=== PATIENT | male | born 1960 | race American Indian/Alaskan Native ===

== ENCOUNTER 2017-12-18 10:17 | Emergency (ER) | payer MEDICAID ==
[2017-12-18 10:31] VITALS: BP 124/85; PULSE 97; RESP 20; TEMP 98.8; O2SAT 98
--- NOTE | 2017-12-18 11:54 | C.PDOC ---
History Of Present Illness 57 year old male with a history of hypertension was sent to the ED by his medical office worker for evaluation of a chronic cyst (x1 year) on the left foot that burst today. Patient reports his cyst burst while he was running which promoted him to visit the medical office worker today, reports bleeding, and left ankle pain (x6 months). Denies fever, nausea, vomiting, headache, and any other associated symptoms. Time Seen by Provider: 12/18/17 10:38 Chief Complaint (Nursing): Lower Extremity Problem/Injury History Per: Patient History/Exam Limitations: no limitations Onset/Duration Of Symptoms: Days Current Symptoms Are (Timing): Still Present Past Medical History Reviewed: Historical Data, Nursing Documentation, Vital Signs Vital Signs: Last Vital Signs Temp 98.8 F 12/18/17 10:24 Pulse 97 H 12/18/17 10:24 Resp 20 12/18/17 10:24 BP 124/85 12/18/17 10:24 Pulse Ox 98 12/18/17 10:24 - Medical History PMH: HTN Family History: States: Unknown Family Hx - Social History Hx Alcohol Use: Yes Hx Substance Use: No Review Of Systems Except As Marked, All Systems Reviewed And Found Negative. Constitutional: Negative for: Fever Gastrointestinal: Negative for: Nausea, Vomiting Musculoskeletal: Positive for: Other (left ankle pain.) Skin: Positive for: Other (cyst on the left foot.) Neurological: Negative for: Headache Physical Exam - Physical Exam Appears: Non-toxic, No Acute Distress Skin: Warm, Dry, Other (medial aspect of the left foot: 4x4cm round cyst. soft and mobile. no discharge. no bleeding.) Head: Atraumatic, Normacephalic Eye(s): bilateral: Normal Inspection Extremity: Normal ROM (x4), No Calf Tenderness, Capillary Refill (less than 2 seconds), No Deformity, Other ( ) Neurological/Psych: Oriented x3, Normal Speech, Normal Motor, Normal Sensation, Normal Reflexes Gait: Steady ED Course And Treatment O2 Sat by Pulse Oximetry: 98 (RA) Pulse Ox Interpretation: Normal Medical Decision Making Medical Decision Making: Plan: --X-ray LF Foot. Progress/Update: X-ray viewed by me. Patient stable for discharge home. Prescribed Motrin. Disposition Counseled Patient/Family Regarding: Studies Performed, Diagnosis, Need For Followup - Disposition Referrals: at [facility] [Outside] Disposition: HOME/ ROUTINE Disposition Time: 11:52 Condition: STABLE Additional Instructions: Follow up in Podiatry clinic next Sunday. 12/25. Prescriptions: Ibuprofen [Motrin] 600 mg PO TID #15 tab Forms: [facility] (French), General Discharge Instructions - Clinical Impression Clinical Impression: Cyst - Scribe Statement The provider has reviewed the documentation as recorded by the Scribe (Lolis Toro) Provider Attestation: All medical record entries made by the Scribe were at my direction and personally dictated by me. I have reviewed the chart and agree that the record accurately reflects my personal performance of the history, physical exam, medical decision making, and the department course for this patient. I have also personally directed, reviewed, and agree with the discharge instructions and disposition.
--- NOTE | 2017-12-18 13:49 | RAD ---
Date of service: 12/18/2017 PROCEDURE: Left Foot Radiographs. HISTORY: ruptured cyst COMPARISON: None. FINDINGS: BONES: No fracture appreciated. The medial distal talus cortex is ill-defined (series 4, image 1). Hallux valgus orientation. Dorsal talar osseous productive change present. JOINTS: 1st metatarsal-phalangeal joint arthrosis SOFT TISSUES: A 2 by approximately 4 cm soft tissue protuberance projects medial to the navicular and talar bone bone OTHER FINDINGS: None. IMPRESSION: Abnormal soft tissue protuberance medial midfoot level. Consider correlation with MRI of the left foot /midfoot hindfoot junction. Distal talar medial cortex integrity indeterminate on single view. Other findings as above. Comments: Study marked for PA review .
--- NOTE | 2017-12-18 14:54 | CP.PCM.CON ---
History of Present Illness - History of Present Illness History of Present Illness: Podiatry Consult- Dr. Alvarenga 57 y/o male with PMHx of HTN seen in ED for left foot ruptured mass. He states he has had a slowly enlarging mass on the inside of the left foot for approx a year and a half. He admits to following up with a local station mechanic apprentice once (he does not recall the name) who took x-rays and advised the patient to monitor the area. He admits that up until now the mass has not caused him any pain, but it broke open three days ago and began to bleed, causing him pain. Admits to covering the area with a bandage. Denies F/C/N/V/CP/SOB. Denies tingling, numbness or burning in the left lower extremity. PSH: denies All: NKDA SocHx: social EtOH; denies cigarette or illicit drug use Review of Systems - Review of Systems All systems: reviewed and no additional remarkable complaints except (per HPI) Past Patient History - Past Social History Smoking Status: Never Smoked - CARDIAC Hx Hypertension: Yes - PSYCHIATRIC Hx Substance Use: No - SURGICAL HISTORY Hx Surgeries: No Meds Home Medications: Home Medication List Medication Instructions Recorded Confirmed Type Ibuprofen [Motrin] 600 mg PO TID #15 tab 12/18/17 Rx Allergies/Adverse Reactions: Allergies Allergy/AdvReac Type Severity Reaction Status Date / Time No Known Allergies Allergy Verified 12/18/17 10:28 Physical Exam - Constitutional Appears: Well, Non-toxic, No Acute Distress - Extremities Exam Additional comments: LLE focused exam: Vasc: DP/PT pulses palpable 2/4. Temperature gradient warm to cool. CFT < 3 sec to all digits. No pedal edema noted Derm: Open ruptured cystic mass noted to medial aspect of midfoot with mild sanguinous drainage noted. Borders of mass are well circumscribed. Mass is firm to palpation. No purulence, no malodor. Neuro: Protective sensation grossly intact Ortho: Mild-moderate tenderness to palpation of cystic mass - Neurological Exam Neurological exam: Alert, Oriented x3 - Psychiatric Exam Psychiatric exam: Normal Affect, Normal Mood Results - Vital Signs Recent Vital Signs: Last Vital Signs Temp 98.8 F 12/18/17 10:24 Pulse 97 H 12/18/17 10:24 Resp 20 12/18/17 10:24 BP 124/85 10/23/18 10:24 Pulse Ox 98 12/18/17 12:16 Assessment & Plan - Assessment and Plan (Free Text) Assessment: 57 y/o male with painful left foot soft tissue mass Plan Pt seen and evaluated in ED Discussed with attending Dr. Alvarenga X-rays of L foot reveal soft tissue mass with no osseous involvement, localized to medial midfoot Ruptured mass site cleaned with saline and dressed with betadine and DSD Rx dispensed for left lower extremity MRI to further evaluate soft tissue mass Pt to follow up in [facility] with Dr. Alvarenga on Mondays from 12-3pm Thank you for this consult
== END 2017-12-18 11:57 | disposition home or self-care (01) ==
LOC: C.ER 10:17
DX: L72.8 Other follicular cysts of the skin and subcutaneous tissue (principal)

== ENCOUNTER 2018-01-06 13:26 | Emergency (ER) | payer MEDICAID ==
[2018-01-06 13:54] VITALS: BP 113/77; PULSE 95; RESP 16; TEMP 98.8; O2SAT 98
--- NOTE | 2018-01-06 15:17 | C.PDOC ---
History Of Present Illness 57 years old male presents to ED for complaints of ruptured mass on his left foot associated with bleeding and subjective fever since yesterday. Patient states he had an MRI done on 01/03. Denies nausea, vomiting, difficulty ambulating, paresthesia or weakness in leg or foot. Time Seen by Provider: 01/06/18 14:20 Chief Complaint (Nursing): Lower Extremity Problem/Injury History Per: Patient History/Exam Limitations: no limitations Onset/Duration Of Symptoms: Hrs Recent travel outside of the [place]: No Past Medical History Reviewed: Historical Data, Nursing Documentation, Vital Signs Vital Signs: Last Vital Signs Temp 98.8 F 01/06/18 13:47 Pulse 95 H 01/06/18 13:47 Resp 16 01/06/18 13:47 BP 113/77 01/06/18 13:47 Pulse Ox 98 01/06/18 13:47 - Medical History PMH: HTN Surgical History: No Surg Hx Family History: States: Unknown Family Hx - Social History Hx Alcohol Use: Yes Hx Substance Use: No Review Of Systems Constitutional: Positive for: Fever. Negative for: Chills Gastrointestinal: Negative for: Nausea, Vomiting Musculoskeletal: Positive for: Other (Left foot ruptured mass with bleeding ) Skin: Negative for: Rash Neurological: Negative for: Weakness, Numbness Physical Exam - Physical Exam Appears: Non-toxic, No Acute Distress Skin: Warm, Dry, No Rash Head: Atraumatic, Normacephalic Eye(s): bilateral: Normal Inspection, PERRL, EOMI Oral Mucosa: Moist ([place] ) Neck: Normal ROM, Supple Chest: Symmetrical, No Tenderness Cardiovascular: Rhythm Regular, No Murmur Respiratory: Normal Breath Sounds, No Rales, No Rhonchi, No Wheezing Gastrointestinal/Abdominal: Soft, No Tenderness Extremity: Normal ROM (Full ROM of ankle and toe. Sensation intact. DP/Pt pulses 2+. ), Other (Large mass at medial aspect of left dorsal foot, is deroofed, oozing blood, and slight malodorous and eythematous. ) Extremity: Bilateral: Normal ROM Neurological/Psych: Oriented x3, Normal Speech Gait: Steady ED Course And Treatment O2 Sat by Pulse Oximetry: 98 (RA) Pulse Ox Interpretation: Normal Medical Decision Making Medical Decision Making: Plan: * Consultation with Podiatry resident customer relations consultant () for further evaluation. 16:35 * Podiatry resident came for patient evaluation. States doesn't appear infected, spoke to Dr. Rodriguez and wants residents to re-address the wound. * Pain medications will be prescribed and will order MRI for foot w/ contrast. Instructions given. Instructed to follow up with tomorrow. No antibiotics needed. Disposition Counseled Patient/Family Regarding: Studies Performed, Diagnosis, Need For Followup - Disposition Referrals: Lilia Alvarenga DPM [Staff Provider] - Disposition Time: 17:04 Prescriptions: traMADol [Ultram] 50 mg PO Q6 PRN #20 tab PRN Reason: Pain, Severe (8-10) Instructions: Wound Care (DC) Forms: General Discharge Instructions, [facility] (Faroese), Work Excuse - POA Present On Arrival: None - Clinical Impression Clinical Impression: Wound of foot - Scribe Statement The provider has reviewed the documentation as recorded by the Scribe Bishop Mercedes All medical record entries made by the Scribe were at my direction and personally dictated by me. I have reviewed the chart and agree that the record accurately reflects my personal performance of the history, physical exam, medical decision making, and the department course for this patient. I have also personally directed, reviewed, and agree with the discharge instructions and disposition.
--- NOTE | 2018-01-06 16:34 | CP.PCM.CON ---
History of Present Illness - History of Present Illness History of Present Illness: Podiatry Consult- Dr. Alvarenga 57 y/o male patient with PMH of HTN seen in ED for painful bleeding left foot soft tissue mass 4 days S/P L foot mass biopsy. He states he has had a slowly enlarging mass on the inside of the left foot for approximately a year and a half. He states that 3 weeks ago the mass ruptured casing him bleeding and pain. Patient states that he came to the ED where he was seen by the foot doctor who dressed the mass and referred him to the podiatry clinic. Patient state sthat he followed up with Dr. Alvarenga at the clinic where a biopsy was taken from the mass 4 days ago and patient sent to do MRI. He states that he doesn't know the results of both yet. Patient states that since he did the biopsy he has pain in his left foot and minimal but continues bleeding. Patient states that yesterday he felt feverish but he didn't have an actual temperature measurement. Patient denies C/N/V/CP/SOB. He Denies tingling, numbness or burning sensation in the left lower extremity. He denies any other pedal complaint at this time. PMH: HTN PSH: None All: NKDA Social Hx: deniessmoking or illicit drug use. Drink EtOH socially. Review of Systems - Review of Systems Review of Systems: As per HPI - Constitutional Constitutional: As Per HPI Past Patient History - Past Social History Smoking Status: Never Smoked - CARDIAC Hx Hypertension: Yes - PSYCHIATRIC Hx Substance Use: No - SURGICAL HISTORY Hx Surgeries: No Meds Allergies/Adverse Reactions: Allergies Allergy/AdvReac Type Severity Reaction Status Date / Time No Known Allergies Allergy Verified 01/06/18 13:47 Physical Exam - Constitutional Appears: Well, Non-toxic, No Acute Distress - Head Exam Head Exam: ATRAUMATIC, NORMOCEPHALIC - Extremities Exam Additional comments: LLE focused exam: Vasc: DP/PT pulses palpable 2/4. Temperature gradient warm to cool. Cap refill < 3 sec to all digits. mild pedal edema noted. Mild erythema noted around the mass. Neuro: Gross and Protective sensation are intact Derm: Open mass noted to medial aspect of midfoot with mild sanguinous drainage and blood clots noted. Mass is measuring [id number]. Borders of mass are well circumscribed. Mass is firm to palpation. No purulence, no malodor. MSK: Moderate tenderness to palpation of mass. Foot and ankle ROM are WNL. Muscle power intact 5/5 to all groups. - Neurological Exam Neurological exam: Alert, Oriented x3 - Psychiatric Exam Psychiatric exam: Normal Affect, Normal Mood Results - Vital Signs Recent Vital Signs: Last Vital Signs Temp 98.8 F 01/06/18 13:47 Pulse 95 H 01/06/18 13:47 Resp 16 01/06/18 13:47 BP 113/77 01/06/18 13:47 Pulse Ox 98 01/06/18 15:38 Assessment & Plan - Assessment and Plan (Free Text) Assessment: 57 y/o male patient seen and evaluated in the ED for painful bleeding left foot soft tissue mass 4 days S/P L foot mass biopsy Plan: Patient seen and evaluated in ED Discussed plan with attending Dr. Alvarenga X-rays of L foot reveal soft tissue mass with no osseous involvement, localized to medial midfoot L foot MRI without contrast done in 01/02/2018 shows abnormal soft tissue mass at the medial midfoot level. Consider Correlation with L foot MRI with contrast. Distal talar medial cortex integrity indeterminate on single view. Pathology report of the mass; fragments of skin with keratosis with separate fragment of fibrinous tissue with acute inflammatory cells and bacterial. Deeper neoplastic process can't bet evaluated in this tissue bipsy. Recommended repeat biopsy/excision for further evaluation if it's linically appropriate. Ruptured mass site cleaned with saline and dressed with betadine, DSD and chris bandage. Patient provided with script for pain meds by the ED doctor. Patient provided with script for MRI with contrast to the left foot. Patient educated RICE protocol. Patient expressed verbal understanding Pt to follow up in [facility] with Dr. Alvarenga Thank you for this consult - Date & Time Date: 01/06/18 Time: 17:12
== END 2018-01-06 17:32 | disposition home or self-care (01) ==
LOC: C.ER 13:26
DX: R22.42 Localized swelling, mass and lump, left lower limb (principal); Z98.890 Other specified postprocedural states

== ENCOUNTER 2018-01-12 16:07 | Emergency (ER) | payer MEDICAID ==
[2018-01-12 16:20] VITALS: RESP 18
--- NOTE | 2018-01-12 16:27 | C.PDOC ---
History Of Present Illness 57 y/o male patient with PMH of HTN comes in to ED for re-evaluation of painful bleeding left foot soft tissue mass since 01/02/18 after S/P L foot mass biopsy. Patient state sthat he followed up with Dr. Alvarenga, had MRI w/o contrast and now waiting for MRI w/contrast of left ankle to characterize a mass. Pt admits, was seen here on 01/06/18, when mass was packed with cotton, re-dressed, discharge home. Pt sts, since then, was unable to stop bleeding. Patient denies fever, chills, headache, dizziness, weakness, chest pain, SOB, dyspnea, plapitation, denies weakness, sensory or vascular deficits to Left leg/foot. Ambulate to Ed for evaluation. Time Seen by Provider: 01/12/18 16:23 Chief Complaint (Nursing): Lower Extremity Problem/Injury History Per: Patient Past Medical History Reviewed: Historical Data, Nursing Documentation, Vital Signs Vital Signs: Last Vital Signs Temp 98.5 F 01/12/18 16:18 Pulse 90 01/12/18 16:18 Resp 18 01/12/18 16:18 BP 148/90 01/12/18 16:18 Pulse Ox 98 01/12/18 16:18 - Medical History PMH: HTN Family History: States: Unknown Family Hx - Social History Hx Alcohol Use: Yes Hx Substance Use: No Review Of Systems Except As Marked, All Systems Reviewed And Found Negative. Constitutional: Negative for: Fever, Chills ENT: Negative for: Ear Discharge, Nose Discharge, Throat Pain Cardiovascular: Negative for: Chest Pain Respiratory: Negative for: Cough, Shortness of Breath Gastrointestinal: Negative for: Nausea, Vomiting, Abdominal Pain Genitourinary: Negative for: Dysuria, Incontinence Musculoskeletal: Positive for: Foot Pain. Negative for: Neck Pain, Back Pain Skin: Positive for: Lesions Neurological: Negative for: Weakness, Numbness, Headache, Dizziness Physical Exam - Physical Exam Appears: Well, Non-toxic, No Acute Distress Skin: Normal Color, Warm Head: Normacephalic Eye(s): bilateral: PERRL Oral Mucosa: Moist Neck: Trachea Midline, Supple Cardiovascular: Rhythm Regular, No Murmur, No JVD Respiratory: No Stridor, No Wheezing Gastrointestinal/Abdominal: Soft, No Tenderness, No Distention, No Guarding Extremity: Normal ROM (FAROM of left ankle and foot, no neurovascular deficits), Tenderness (medial malleolus left ankle), No Calf Tenderness (left), Capillary Refill (less than 2sec to left foot), No Deformity, No Swelling, Other (open wound 4cm diameter over medial malleolus left ankle with packed cotton in wound, mild bloody continous oozing noted from wound. No edema, no erythema.) Pulses: Left Dorsalis Pedis: Normal Neurological/Psych: Oriented x3, Normal Speech, Normal Motor, Normal Sensation, Normal Reflexes ED Course And Treatment - Laboratory Results Result Diagrams: 01/12/18 17:08 01/12/18 17:08 Lab Interpretation: No Acute Changes O2 Sat by Pulse Oximetry: 98 Pulse Ox Interpretation: Normal - CT Scan/US MRI of Left foot w/o contrast from 01/02/18 Other Rad Studies (CT/US): Radiology Report Reviewed CT/US Interpretation: Exam Date : 01/02/2018 09:42:39 ( Approved ). Study Comment : Sex / Age : M / 57Y. Creator : Lyndsay Kaplan. Dictator : Abhishek Erickson MD. Talent Agent : Roof Bolter : Abhishek Erickson MD. Approver2 : Report Date : 01/02/2018 10:30:28. My Comment : . Date of service: 01/02/2018. PROCEDURE: MRI Left midfoot. HISTORY: Left medial foot soft tissue mass the patient reports has been present for 2-3 years. No history trauma. COMPARISON: Left foot x-rays 12/18/2017. TECHNIQUE: Multiecho multiplanar sequences were performed through the left midfoot without the use of intravenous contrast. FINDINGS: BONES: No fracture identified. Degenerative changes noted along the dorsum of the foot. MUSCLES: Unremarkable. SOFT TISSUES: Within the medial subcutaneous fat at the level of the talonavicular joint, there is a heterogeneous, septated, predominantly T2 hyperintense, T1 hypointense mass m easuring 3.5 x 1.5 x 3.2 cm (AP by ML by CC). Immediately medial to the dominant component of the mass, there is an intermediate signal mass measuring 1.5 x 0.8 cm that may be a portion of the dominant mass. Mass protrudes from the skin. There is no underlying bony involvement. LISFRANC LIGAMENT: Intact. PLANTAR PLATE: Visualized plantar fascia is intact. EXTENSOR TENDONS: Intact. FLEXOR TENDONS: Intact. OTHER FINDINGS: None. IMPRESSION: Within the subcutaneous fat of the medial foot at the level of the talonavicular joint, there is a heterogeneous complex cystic mass measuring approximately 3.5 cm with an adjacent solid component measuring 1.5 cm. Recommend MRI with contrast for further evaluation. Additional findings as above. Progress Note: Pt was seen here by Podiatry resident and wound evaluated. case was discussed with and admisison recommend. Pt sts, " parked at wrong place, wish to be discharge now and will come back later. need to drive my home ". Risk of leaving against medical advised discussed with pateint, understand and agrees with risks. Pt will be discharged AMA Against Medical Advice - AMA Patient Left Against Medical Advice: The patient declines admission to the hospital and wishes to leave the Emergency Department. This action is against my medical advice. This decision was made with informed refusal. The patient was told that admission to the hospital is necessary. Explanation of the reasons why were discussed. The risks of leaving were explained to the patient and include, but are not limited to, worsening of known or currently unknown conditions, permanent disability and from undiagnosed or untreated conditions. The patient has the capacity to make this informed decision and understands my explanation of the current medical problem and risks of leaving. The patient voluntarily accepts these risks and signed an AMA form documenting our conversation. The patient was given the opportunity to ask questions and reconsider. The patient was encouraged to return to the Emergency Department at any time for further care. Disposition - Disposition Disposition: AGAINST MEDICAL ADVICE Disposition Time: 17:47 Condition: STABLE Forms: [employer] (Slovenian) - Clinical Impression Clinical Impression: Open wound, Bleeding from wound
[2018-01-12 17:13] LABS: EOS # 0.1 K/uL (0.0-0.7); LYMPH # 1.3 K/uL (1.0-4.3); MEAN CORPUSCULAR HGB CONC 34.9 g/dL (33.0-37.0); NEUT # 2.4 K/uL (1.8-7.0)
[2018-01-12 17:21] LABS: INR 1.1; PROTHROMBIN TIME 12.1 SECONDS (9.7-12.2)
[2018-01-12] MEDS ORDERED: Absorbable Gelatin Sponge Size 12-7 TOP STA (17:23)
[2018-01-12 17:27] LABS: BLOOD UREA NITROGEN 10 mg/dL (9-20); GFR NON-AFRICAN AMERICAN > 60
[2018-01-12 17:28] LABS: CALCIUM 8.8 mg/dl (8.6-10.4)
[2018-01-12] MEDS ORDERED: Absorbable Gelatin Sponge Size 12-7 ONE (17:34)
[2018-01-12] MEDS ORDERED: Lidocaine 2% MPF (5 ml) Inj ONE (17:35)
[2018-01-12 17:48] LABS: BASO % 1.1 % (0.0-2.0); EOS % 1.9 % (0.0-4.0); HEMOGLOBIN 13.1 g/dL (12.0-18.0); LYMPH % 30.8 % (20.0-40.0); MEAN CELL VOLUME 100.2 fL (80.0-94.0); MEAN PLATELET VOLUME 8.3 fL (7.2-11.7); MONO # 0.4 K/uL (0.0-0.8); NEUT % 56.2 % (50.0-75.0); NRBC % 0.3 % (0.0-2.0); RBC 3.76 Mil/uL (4.40-5.90); RED CELL DISTRIBUTION WIDTH 14.7 % (11.5-14.5); WHITE BLOOD COUNT 4.3 K/uL (4.8-10.8)
--- NOTE | 2018-01-12 18:01 | CP.PCM.CON ---
History of Present Illness - History of Present Illness History of Present Illness: Podiatry Consult for Dr. Alvarenga 57 y/o male with PMHx of HTN seen in ED for left foot ruptured mass. He states he has had a slowly enlarging mass on the inside of the left foot for approx a year and a half. Patient states he has been seen by Podiatry in the past for similar complaints. Patient states his fiance was dressing the wound, however, this time it ruptured as a bag fell on it. He admits to significant pain. Denies F/C/N/V/CP/SOB. Denies tingling, numbness or burning in the left lower extremity. PSH: denies All: NKDA SocHx: social EtOH; denies cigarette or illicit drug use Review of Systems - Review of Systems All systems: reviewed and no additional remarkable complaints except Review of Systems: As per HPI Past Patient History - Past Social History Smoking Status: Never Smoked - CARDIAC Hx Hypertension: Yes - PSYCHIATRIC Hx Substance Use: No - SURGICAL HISTORY Hx Surgeries: No - ANESTHESIA Hx Anesthesia: No Meds Allergies/Adverse Reactions: Allergies Allergy/AdvReac Type Severity Reaction Status Date / Time No Known Allergies Allergy Verified 01/06/18 13:47 Physical Exam - Constitutional Appears: Well, Non-toxic, No Acute Distress - Head Exam Head Exam: ATRAUMATIC, NORMOCEPHALIC - Extremities Exam Additional comments: LLE focused exam: Vasc: DP/PT pulses palpable 2/4. Temperature gradient warm to cool. CFT < 3 sec to all digits. No pedal edema noted Derm: Open ruptured cystic mass noted to medial aspect of midfoot with significant sanguinous drainage noted. Mass is measuring [id number]. Borders of mass are well circumscribed. Mass is firm to palpation. No purulence, positive malodor. macerated borders Neuro: Protective sensation grossly intact Ortho: moderate-severe tenderness to palpation of cystic mass - Neurological Exam Neurological exam: Alert, Oriented x3 - Psychiatric Exam Psychiatric exam: Normal Affect, Normal Mood Results - Vital Signs Recent Vital Signs: Last Vital Signs Temp 98.5 F 01/12/18 16:18 Pulse 90 01/12/18 16:18 Resp 18 01/12/18 16:18 BP 148/90 01/12/18 16:18 Pulse Ox 98 01/12/18 17:00 - Labs Result Diagrams: 01/12/18 17:08 01/12/18 17:08 Labs: Laboratory Results - last 24 hr 01/12/1818 01/12/18 17:08 17:08 17:08 WBC 4.3 L RBC 3.76 L Hgb 13.1 Hct 37.6 MCV 100.2 H MCH 35.0 H MCHC 34.9 RDW 14.7 H Plt Count 146 MPV 8.3 Neut % (Auto) 56.2 Lymph % (Auto) 30.8 [place] % (Auto) 10.0 Eos % (Auto) 1.9 Baso % (Auto) 1.1 Neut # (Auto) 2.4 Lymph # (Auto) 1.3 [place] # (Auto) 0.4 Eos # (Auto) 0.1 Baso # (Auto) 0.0 PT 12.1 INR 1.1 APTT 32 Sodium 142 Potassium 4.0 Chloride 104 Carbon Dioxide 26 Anion Gap 15 BUN 10 Creatinine 1.0 Est GFR ( Amer) > 60 Est GFR (Non-Af Amer) > 60 Random Glucose 93 Calcium 8.8 Assessment & Plan - Assessment and Plan (Free Text) Assessment: 57 y/o male with painful left foot soft tissue mass Plan: Patient was seen and evaluated in the Emergency Department Plan was discussed with Dr. Alvarenga Previous Imaging reviewed -X-rays of L foot reveal soft tissue mass with no osseous involvement, localized to medial midfoot - L foot MRI without contrast done in 01/02/2018 shows abnormal soft tissue mass at the medial midfoot level. Consider Correlation with L foot MRI with contrast. Distal talar medial cortex integrity indeterminate on single view. -Pathology report of the mass: fragments of skin with keratosis with separate fragment of fibrinous tissue with acute inflammatory cells and bacterial. Deeper neoplastic process can't bet evaluated in this tissue bipsy. Recommended repeat biopsy/excision for further evaluation if it's linically appropriate Patient given a local ring block with 5 cc of 2% Lidocaine Ruptured mass site cleaned with saline, Gelfoam applied to the site to control bleeding Site dressed with 1 inch iodoform packing, gauze, ABD and Kerlix As per Podiatry recommendation, patient advised to be admitted Patient however would like to sign AMA at this time and states he will return for admission, Patient expressed verbal understanding on all risks Please do not remove dressing upon return to the ED Thank you - Date & Time Date: 01/12/18 Time: 18:54
[2018-01-12] MEDS ORDERED: Lidocaine 2% Inj (20ml) INFIL ONE (18:04)
[2018-01-12 18:10] VITALS: BP 165/115; PULSE 84; TEMP 98.9
[2018-01-12 18:16] VITALS: O2SAT 98
== END 2018-01-12 18:10 | disposition left against medical advice (07) ==
LOC: C.ER 16:07
DX: R22.42 Localized swelling, mass and lump, left lower limb (principal)

== ENCOUNTER 2018-01-13 10:28 | Inpatient (IN) | payer MEDICAID ==
--- NOTE | 2018-01-13 11:12 | C.PDOC ---
History Of Present Illness 57 year old male , PNHx of HTN, non-healing open wound to his left ankle with bleeding, present to ED for re-evaluation and admission after was seen here in ED yesterday and was offered admission. Patient denies any new changes since yesterday. FYI: Records from yesterday review, pt was seen in ED due to same complaints, blood work review- no acute changes. Pt was evaluated by client support administrator/resident , case discussed with and admission offered, pt sign AMA. Time Seen by Provider: 01/13/18 10:31 Chief Complaint (Nursing): Wound Check History Per: Patient History/Exam Limitations: no limitations Current Symptoms Are (Timing): Still Present Location Of Injury: Left: Ankle Quality Of Symptoms: Other (open wound) Past Medical History Reviewed: Historical Data, Nursing Documentation, Vital Signs Vital Signs: Last Vital Signs Temp 98.9 F 01/13/18 10:35 Pulse 76 01/13/18 10:35 Resp 18 01/13/18 10:35 BP 166/94 H 01/13/18 10:35 Pulse Ox 100 01/13/18 10:35 - Medical History PMH: HTN Surgical History: No Surg Hx Family History: States: Unknown Family Hx - Social History Hx Alcohol Use: Yes Hx Substance Use: No Review Of Systems Except As Marked, All Systems Reviewed And Found Negative. Constitutional: Negative for: Fever, Chills Skin: Positive for: Other (open wound at left ankle) Physical Exam - Physical Exam Additional Physical Exam Comments: Appears: Well, Non-toxic, No Acute Distress Skin: Normal Color, Warm Head: Normacephalic Eye(s): bilateral: PERRL Oral Mucosa: Moist Neck: Trachea Midline, Supple Cardiovascular: Rhythm Regular, No Murmur, No JVD Respiratory: No Stridor, No Wheezing Gastrointestinal/Abdominal: Soft, No Tenderness, No Distention, No Guarding Extremity: Normal ROM (FAROM of left ankle and foot, no neurovascular deficits), Tenderness (medial malleolus left ankle), No Calf Tenderness (left), Capillary Refill (less than 2sec to left foot), No Deformity, No Swelling, Other (open wound 4cm diameter over medial malleolus left ankle with packed cotton in wound, mild bloody continous oozing noted from wound. No edema, no erythema.) Pulses: Left Dorsalis Pedis: Normal Neurological/Psych: Oriented x3, Normal Speech, Normal Motor, Normal Sensation, Normal Reflexes ED Course And Treatment O2 Sat by Pulse Oximetry: 100 (RA) Pulse Ox Interpretation: Normal Progress Note: Pt rmained stable during the Ed evaluation. case discussed with Podiatry resident again, admisison confirmed to med with podiatry consul. case discussed with and admission arranged. Disposition - Disposition Disposition: HOME/ ROUTINE Disposition Time: 11:02 Condition: STABLE - Clinical Impression Clinical Impression: Bleeding from wound, Non-healing non-surgical wound - PA / MATERIALS MANAGEMENT MANAGER / Resident Statement MD/DO has reviewed & agrees with the documentation as recorded. - Scribe Statement The provider has reviewed the documentation as recorded by the Scribe (Jonn June) All medical record entries made by the Scribe were at my direction and personally dictated by me. I have reviewed the chart and agree that the record accurately reflects my personal performance of the history, physical exam, medical decision making, and the department course for this patient. I have also personally directed, reviewed, and agree with the discharge instructions and disposition.
--- NOTE | 2018-01-13 12:36 | CP.PCM.HP ---
Past Patient History - Past Social History Smoking Status: Never Smoked - CARDIAC Hx Hypertension: Yes - PSYCHIATRIC Hx Substance Use: No - SURGICAL HISTORY Hx Surgeries: No - ANESTHESIA Hx Anesthesia: No Meds Allergies/Adverse Reactions: Allergies Allergy/AdvReac Type Severity Reaction Status Date / Time No Known Allergies Allergy Verified 01/13/18 10:35 Physical Exam - Constitutional Appears: Well - Head Exam Head Exam: ATRAUMATIC, NORMAL INSPECTION, NORMOCEPHALIC - Eye Exam Eye Exam: EOMI, Normal appearance, PERRL Pupil Exam: NORMAL ACCOMODATION, PERRL - ENT Exam ENT Exam: Mucous Membranes Moist, Normal Exam - Neck Exam Neck exam: Positive for: Normal Inspection - Respiratory Exam Respiratory Exam: Decreased Breath Sounds - Cardiovascular Exam Cardiovascular Exam: REGULAR RHYTHM, +S1, +S2 - GI/Abdominal Exam GI & Abdominal Exam: Diminished Bowel Sounds, Soft - Rectal Exam Rectal Exam: Deferred Results - Vital Signs Recent Vital Signs: Last Vital Signs Temp 98.5 F 01/13/18 12:30 Pulse 75 01/13/18 12:30 Resp 16 01/13/18 12:30 BP 176/96 H 01/13/18 12:30 Pulse Ox 100 01/13/18 12:30
--- NOTE | 2018-01-13 17:35 | CP.PCM.CON ---
History of Present Illness - History of Present Illness History of Present Illness: discussed on rounds 57M seen at bedside for dorsal left foot soft tissue mass. He received a punch biopsy of his soft tissue mass in clinic several weeks ago that came back inconclusive. He also received an MRI without contrast on 01/02 that was positive for cystic mass with recommendation for MRI with contrast. MRI with contrast was taken today and results are pending. Review of Systems - Review of Systems All systems: reviewed and no additional remarkable complaints except - Constitutional Constitutional: absent: As Per HPI, Anorexia, Chills, Daytime Sleepiness, Excessive Sweating, Fatigue, Fever, Frequent Falls, Headache, Increased Appetite, Lethargy, Malaise, Night Sweats, Snoring, Sleep Apnea, Weight Gain, Weight Loss, Weakness, Other Past Patient History - Past Medical History & Family History Past Medical History?: Yes - Past Social History Smoking Status: Unknown If Ever Smoked - CARDIAC Hx Hypertension: Yes - MUSCULOSKELETAL/RHEUMATOLOGICAL Hx Falls: No - PSYCHIATRIC Hx Substance Use: No - SURGICAL HISTORY Hx Surgeries: No - ANESTHESIA Hx Anesthesia: Yes Meds Allergies/Adverse Reactions: Allergies Allergy/AdvReac Type Severity Reaction Status Date / Time No Known Allergies Allergy Verified 01/13/18 10:35 - Medications Medications: Current Medications Amlodipine Besylate (Norvasc) 5 mg PO DAILY [facility] Clonidine HCl (Catapres) 0.1 mg PO Q8 [facility] Last Admin: 01/13/18 16:17 Dose: 0.1 mg Piperacillin Sod/Tazobactam (Sod 3.375 gm/ Sodium Chloride) 100 mls @ 200 mls/hr IVPB Q8H [facility]; Protocol Influenza Virus Vaccine (Fluzone Quad [id number]) 60 mcg IM .ONCE ONE Stop: 01/15/18 10:01 Pantoprazole Sodium (Protonix Ec Tab) 40 mg PO DAILY [facility] Pneumococcal Polyvalent Vaccine (Pneumovax 23 Vaccine) 0.5 ml IM .ONCE ONE Stop: 01/15/18 10:01 Tramadol HCl (Ultram) 50 mg PO Q6 PRN PRN Reason: Pain, moderate (4-7) Physical Exam - Constitutional Appears: Chronically Ill - Head Exam Head Exam: ATRAUMATIC - Eye Exam Eye Exam: absent: Scleral icterus - ENT Exam ENT Exam: Mucous Membranes Dry, Normal Oropharynx - Neck Exam Neck exam: Negative for: Lymphadenopathy - Respiratory Exam Respiratory Exam: Decreased Breath Sounds - Cardiovascular Exam Cardiovascular Exam: REGULAR RHYTHM - GI/Abdominal Exam GI & Abdominal Exam: Diminished Bowel Sounds - Rectal Exam Rectal Exam: Deferred - Exam Exam: NORMAL INSPECTION - Extremities Exam Extremities exam: Positive for: pedal edema, tenderness, pedal pulses present. Negative for: calf tenderness, normal inspection - Back Exam Back exam: absent: CVA tenderness (L), CVA tenderness (R) - Neurological Exam Neurological exam: Alert, CN II-XII Intact, Oriented x3, Reflexes Normal - Psychiatric Exam Psychiatric exam: Normal Mood - Skin Skin Exam: Dry Results - Vital Signs Recent Vital Signs: Last Vital Signs Temp 98.1 F 01/13/18 16:28 Pulse 65 01/13/18 16:28 Resp 20 01/13/18 16:28 BP 169/98 H 01/13/18 17:13 Pulse Ox 100 01/13/18 17:32 - Labs Result Diagrams: 01/14/18 06:43 01/14/18 06:43 Assessment & Plan (1) Bleeding from wound Status: Acute (2) Non-healing non-surgical wound Status: Acute (3) Cyst Status: Acute (4) Open wound Status: Acute - Assessment and Plan (Free Text) Assessment: await cultures cont IV rx and wound care
[2018-01-13] MEDS: Piperacillin/Tazobact 3.375 GM in Sodium Chloride 100 ML IVPB SCH (17:39)
[2018-01-13] MEDS: Pantoprazole 40 mg EC Tab PO SCH (17:57)
[2018-01-14] MEDS: Piperacillin/Tazobact 3.375 GM in Sodium Chloride 100 ML IVPB SCH ×3 (02:13→17:34)
[2018-01-14 07:05] LABS: BASO % 1.2 % (0.0-2.0); HEMOGLOBIN 12.9 g/dL (12.0-18.0); LYMPH # 0.8 K/uL (1.0-4.3); MEAN CELL VOLUME 100.6 fL (80.0-94.0); MEAN CORPUSCULAR HEMOGLOBIN 35.5 pg (27.0-31.0); MEAN CORPUSCULAR HGB CONC 35.3 g/dL (33.0-37.0); MEAN PLATELET VOLUME 8.8 fL (7.2-11.7); MONO # 0.4 K/uL (0.0-0.8); MONO % 12.8 % (0.0-10.0); NEUT # 1.9 K/uL (1.8-7.0); NRBC % 0.2 % (0.0-2.0); RBC 3.64 Mil/uL (4.40-5.90); RED CELL DISTRIBUTION WIDTH 14.1 % (11.5-14.5); WHITE BLOOD COUNT 3.1 K/uL (4.8-10.8)
[2018-01-14 07:14] LABS: INR 1.2; PROTHROMBIN TIME 12.7 SECONDS (9.7-12.2)
[2018-01-14 08:08] VITALS: RESP 20
[2018-01-14 08:11] LABS: ALB/GLOB RATIO 1.1 (1.0-2.1); ALBUMIN 4.1 g/dL (3.5-5.0); ALT/SGPT 126 U/L (21-72); AST/SGOT 251 U/L (17-59); BLOOD UREA NITROGEN 16 mg/dL (9-20); CALCIUM 8.8 mg/dl (8.6-10.4); GFR NON-AFRICAN AMERICAN > 60
[2018-01-14] MEDS: Pantoprazole 40 mg EC Tab PO SCH (09:47)
--- NOTE | 2018-01-14 10:52 | CP.PCM.CON ---
History of Present Illness - History of Present Illness History of Present Illness: Podiatry Consult Note for Dr. Alvarenga 57M seen at bedside for dorsal left foot soft tissue mass. Patient was previously seen multiple times by our service in ED and in Dr. Alvarenga's clinic. He received a punch biopsy of his soft tissue mass in clinic several weeks ago that came back inconclusive. He also received an MRI without contrast on 01/02 that was positive for cystic mass with recommendation for MRI with contrast. MRI with contrast was taken today and results are pending. Patient states that there is only minimal pain to the growth at this time. He does state that he has noticed that it has continued to bleed. He denies any new trauma to the area. Patient is AAO x 3 and NAD at time of visit. Denies any further pedal complaints at this time. Denies any recent N/V/F/C/CP/SOB/D Review of Systems - Review of Systems All systems: reviewed and no additional remarkable complaints except Review of Systems: as per HPI Past Patient History - Past Medical History & Family History Past Medical History?: Yes - Past Social History Smoking Status: Unknown If Ever Smoked - CARDIAC Hx Hypertension: Yes - MUSCULOSKELETAL/RHEUMATOLOGICAL Hx Falls: No - PSYCHIATRIC Hx Substance Use: No - SURGICAL HISTORY Hx Surgeries: No - ANESTHESIA Hx Anesthesia: Yes Meds Allergies/Adverse Reactions: Allergies Allergy/AdvReac Type Severity Reaction Status Date / Time No Known Allergies Allergy Verified 01/13/18 10:35 - Medications Medications: Current Medications Amlodipine Besylate (Norvasc) 5 mg PO DAILY [facility] Last Admin: 01/14/18 09:47 Dose: 5 mg Clonidine HCl (Catapres) 0.1 mg PO Q8 [facility] Last Admin: 01/14/18 06:16 Dose: 0.1 mg Folic Acid (Folic Acid) 1 mg PO DAILY [facility] Last Admin: 01/14/18 09:47 Dose: 1 mg Heparin Sodium (Porcine) (Heparin) 5,000 units SC Q12 [facility] Last Admin: 01/14/18 09:47 Dose: 5,000 units Piperacillin Sod/Tazobactam (Sod 3.375 gm/ Sodium Chloride) 100 mls @ 200 mls/hr IVPB Q8H [facility]; Protocol Last Admin: 01/14/18 10:46 Dose: 200 mls/hr Influenza Virus Vaccine (Fluzone Quad [id number]) 60 mcg IM .ONCE ONE Stop: 01/15/18 10:01 Pantoprazole Sodium (Protonix Ec Tab) 40 mg PO DAILY [facility] Last Admin: 01/14/18 09:47 Dose: 40 mg Pneumococcal Polyvalent Vaccine (Pneumovax 23 Vaccine) 0.5 ml IM .ONCE ONE Stop: 01/15/18 10:01 Thiamine HCl (Vitamin B1 Tab) 100 mg PO BID [facility] Last Admin: 01/14/18 09:47 Dose: 100 mg Tramadol HCl (Ultram) 50 mg PO Q6 PRN PRN Reason: Pain, moderate (4-7) Physical Exam - Constitutional Appears: Well, Non-toxic, No Acute Distress - Extremities Exam Additional comments: LLE focused exam: Vasc: DP/PT pulses palpable 2/4. Temperature gradient warm to warm from proximal to distal WNL. CFT < 3 sec to all digits. No pedal edema noted Derm: Open ruptured cystic mass noted to the dorsal aspect of midfoot with significant serosanguinous drainage noted. Mass is measuring [id number]. Borders of mass are well circumscribed. Mass is firm to palpation. No purulence, positive malodor and macerated borders Neuro: Epicritic and protective sensation grossly intact Ortho: moderate-severe tenderness to palpation of cystic mass - Neurological Exam Neurological exam: Alert, Oriented x3 - Psychiatric Exam Psychiatric exam: Normal Affect, Normal Mood Results - Vital Signs Recent Vital Signs: Last Vital Signs Temp 98.7 F 01/14/18 08:06 Pulse 74 01/14/18 08:06 Resp 20 01/14/18 08:06 BP 152/85 H 01/14/18 08:06 Pulse Ox 97 01/14/18 08:06 - Labs Result Diagrams: 01/14/18 06:43 01/14/18 06:43 Labs: Laboratory Results - last 24 hr 01/14/18 01/14/18 01/14/18 06:43 06:43 06:43 WBC 3.1 L RBC 3.64 L Hgb 12.9 Hct 36.6 MCV 100.6 H MCH 35.5 H MCHC 35.3 RDW 14.1 Plt Count 131 MPV 8.8 Neut % (Auto) 60.0 Lymph % (Auto) 25.0 [place] % (Auto) 12.8 H Eos % (Auto) 1.0 Baso % (Auto) 1.2 Neut # (Auto) 1.9 Lymph # (Auto) 0.8 L [place] # (Auto) 0.4 Eos # (Auto) 0.0 Baso # (Auto) 0.0 PT 12.7 H INR 1.2 APTT 30 Sodium 138 Potassium 3.8 Chloride 97 L Carbon Dioxide 28 Anion Gap 16 BUN 16 Creatinine 1.1 Est GFR ( Amer) > 60 Est GFR (Non-Af Amer) > 60 Random Glucose 94 Calcium 8.8 Total Bilirubin 3.0 H AST 251 H ALT 126 H Alkaline Phosphatase 81 Total Protein 7.9 Albumin 4.1 Globulin 3.8 Albumin/Globulin Ratio 1.1 Assessment & Plan - Assessment and Plan (Free Text) Assessment: 57M seen at bedside for dorsal left foot soft tissue mass Plan: Patient seen and evaluated Plan discussed with Dr. Lyle Mcdermott, absent leukocytosis Continue IV abx per ID 12/18 foot xray: Abnormal soft tissue protuberance medial midfoot level 12/24 soft tissue mass pathology report: Fragments of skin with keratosis, separate fragment of fibrous tissue with acute inflammatory cells and bacteria. Note: Given the radiologic appearance and size of the mass, a deeper neoplastic process can not be evaluated in this tissue biopsy. A repeat biopsy/excision is recommended for further evaluation if clinically appropriate 01/02 MRI without contrast: Within the subcutaneous fat of the medial foot at the level of the talonavicular joint, there is a heterogeneous complex cystic mass measuring approximately 3.5 cm with an adjacent solid component measuring 1.5 cm 01/14 MRI with contrast: Read pending Wound dressed with ABD, DSD No plan for surgical intervention at this time, will await results of MRI with contrast Podiatry will continue to follow while patient in house - Date & Time Date: 01/14/18 Time: 11:02
[2018-01-14 11:50] LABS: HDL CHOLESTEROL 92 mg/dL (30-70)
[2018-01-14 12:02] LABS: LDL CHOLESTEROL 72 mg/dL (0-129)
[2018-01-14 12:20] LABS: HEPATITIS B SURFACE AG Negative (NEGATIVE)
[2018-01-14 12:25] LABS: HEPATITIS A IGM NEGATIVE (NEGATIVE); HEPATITIS B CORE AB NEGATIVE (NEGATIVE)
[2018-01-14 12:37] LABS: HEPATITIS C ANTIBODY NEGATIVE (NEGATIVE)
--- NOTE | 2018-01-14 13:37 | CP.PCM.PN ---
Subjective - Date & Time of Evaluation Date of Evaluation: 01/14/18 Time of Evaluation: 13:35 - Subjective Subjective: PGY-2 Progress Note Patient seen and examined at bedside. Per nursing no acute events occurred overnight. Patient denies any chest pain, fevers, chills, nausea, vomiting, headaches, dizziness, abdominal pain, palpitations, syncopal episodes, or any other complaints. 57 year old male with a past medical history of hypertension presents to the hospital with left ankle bleeding wound . Patient reports some pain he describes as throbbing in nature as well. Patient recently presented to the [facility] with the same complaint and was offered admission however, patient refused at the time. Patient denies any fevers, chills, nausea, vomiting, headaches, dizzines, abdominal pain, or any other complaints. Medical history: htn Surgical history: Denies Allergies: Denies Social history: Social drinker. Denies illicit drug use. Objective - Vital Signs/Intake and Output Vital Signs (last 24 hours): Temp Pulse Resp BP Pulse Ox 98.7 F 74 20 152/85 H 97 01/14/18 08:06 01/14/18 08:06 01/14/18 08:06 01/14/18 08:06 01/14/18 08:06 - Medications Medications: Current Medications Amlodipine Besylate (Norvasc) 5 mg PO DAILY [facility] Last Admin: 01/14/18 09:47 Dose: 5 mg Clonidine HCl (Catapres) 0.1 mg PO Q8 [facility] Last Admin: 01/14/18 06:16 Dose: 0.1 mg Folic Acid (Folic Acid) 1 mg PO DAILY [facility] Last Admin: 01/14/18 09:47 Dose: 1 mg Heparin Sodium (Porcine) (Heparin) 5,000 units SC Q12 [facility] Last Admin: 01/14/18 09:47 Dose: 5,000 units Piperacillin Sod/Tazobactam (Sod 3.375 gm/ Sodium Chloride) 100 mls @ 200 mls/hr IVPB Q8H [facility]; Protocol Last Admin: 01/14/18 10:46 Dose: 200 mls/hr Influenza Virus Vaccine (Fluzone Quad [id number]) 60 mcg IM .ONCE ONE Stop: 01/15/18 10:01 Pantoprazole Sodium (Protonix Ec Tab) 40 mg PO DAILY [facility] Last Admin: 01/14/18 09:47 Dose: 40 mg Pneumococcal Polyvalent Vaccine (Pneumovax 23 Vaccine) 0.5 ml IM .ONCE ONE Stop: 01/15/18 10:01 Thiamine HCl (Vitamin B1 Tab) 100 mg PO BID [facility] Last Admin: 01/14/18 09:47 Dose: 100 mg Tramadol HCl (Ultram) 50 mg PO Q6 PRN PRN Reason: Pain, moderate (4-7) - Labs Labs: 01/14/18 06:43 01/14/18 06:43 PT 12.7 SECONDS (9.7-12.2) H 01/14/18 06:43 INR 1.2 01/14/18 06:43 APTT 30 SECONDS (21-34) 01/14/18 06:43 - Head Exam Head Exam: ATRAUMATIC, NORMAL INSPECTION, NORMOCEPHALIC - Eye Exam Eye Exam: EOMI, Normal appearance, PERRL. absent: Scleral icterus Pupil Exam: NORMAL ACCOMODATION, PERRL. absent: Unequal - ENT Exam ENT Exam: Mucous Membranes Moist, Normal Exam - Neck Exam Neck Exam: Normal Inspection - Respiratory Exam Respiratory Exam: Clear to Ausculation Bilateral, NORMAL BREATHING PATTERN. absent: Decreased Breath Sounds, Rales, Wheezes, Respiratory Distress - Cardiovascular Exam Cardiovascular Exam: REGULAR RHYTHM, +S1, +S2 - GI/Abdominal Exam GI & Abdominal Exam: Soft, Normal Bowel Sounds. absent: Tenderness, Diminished Bowel Sounds - Neurological Exam Neurological Exam: Alert, Awake, CN II-XII Intact, Oriented x3. absent: Reflexes Normal - Psychiatric Exam Psychiatric exam: Normal Affect, Normal Mood. absent: Anxious, Suicidal Ideation - Skin Skin Exam: Dry, Intact, Warm Assessment and Plan - Assessment and Plan (Free Text) Assessment: 57 year old male with a past medical history of hypertension admitted for left ankle bleeding wound. Plan: 1. Left ankle wound -Left foot MRI taken. Pending final read -Foot xray: Abnormal soft tissue protuberance medial midfoot level -Soft tissue mass pathology report: Fragments of skin with keratosis, separate fragment of fibrous tissue with acute inflammatory cells and bacteria. Note: Given the radiologic appearance and size of the mass, a deeper neoplastic process can not be evaluated in this tissue biopsy. A repeat biopsy/excision is recommended for further evaluation if clinically appropriate - MRI without contrast: Within the subcutaneous fat of the medial foot at the level of the talonavicular joint, there is a heterogeneous complex cystic mass measuring approximately 3.5 cm with an adjacent solid component measuring 1.5 cm -Podiatry Dr. Alvarenga consulted. Help appreciated :No plan for surgical intervention at this time, will await results of MRI with contrast Podiatry will continue to follow while patient in house -Infectious disease Dr. Shaw consulted. Help appreciated. Medications: :Zosyn 3.375gm IVPB Q8H :Tramadol 50mg PO Q6 PRN 2.Hypertension -Norvasc 5mg PO Daily -Clonidine .1mg PO Q8 3. Transaminitis -Abdominal u/s ordered. Will f/u with results -Avoid hepatotoxic agents ppx -Heparin 5000 units SC Q12 -Protonix 40 mg PO Daily -Folic Aci 1mg PO Daily -Thiamine 100 mg PO BID All managment per Dr. Jason Erickson. Aubrey Barajas, PGY-2
--- NOTE | 2018-01-14 14:31 | MRI ---
MRI left foot HISTORY: Soft tissue mass. COMPARISON: MRI dated 01/02/2018 TECHNIQUE: Multi-echo multiplanar sequences were performed through the left foot without and with the use of intravenous contrast. FINDINGS: Again identified within the medial subcutaneous fat at the level of the talonavicular joint, there is a complex heterogeneous, septated predominantly T2 hyperintense and T1 hypointense clustered mass. The mass measures approximately 3.9 x 1.7 x 3.3 centimeters. The mass contains multiple areas of internal segmentation as well as peripheral thickening. There is some mild postcontrast enhancement on the post-contrast sequences. This is of uncertain clinical etiology and underlying neoplasm such as synovial sarcoma cannot be excluded. Additional etiologies are not excluded and correlation with soft tissue and or excisional biopsy is recommended if clinically indicated. This mass appears to approximate the medial cortex of the navicular bone. No gross signal abnormality noted within the medial aspect of the navicular bone on the T1 and STIR sequences; however, there is some minimal increased signal on the post-contrast sequences as demonstrated on series 13 image 14, nonspecific. Incidentally noted is a small rounded cystic foci seen measuring 6 x 6 x 6 millimeters within the posterior soft tissues at the level of the talus as demonstrated on series 7, image 20 and series 10, image 31. This demonstrates primarily decreased T1 signal and increased STIR signal with a small internal focus of low STIR signal within the lesion. This is of uncertain clinical etiology and may represent a small synovial cyst and or ganglia versus traversing vessel versus additional etiology. Continued interval follow-up may be helpful if clinically indicated. Anterior extensor tendons are preserved. Medial flexor tendons are preserved. Peroneal tendons are preserved. Anterior and posterior tibiofibular and talofibular ligaments are preserved. Plantar fascia is preserved. Sinus tarsi is preserved. No significant ankle joint effusion Deltoid ligament is preserved. Impression: Again identified within the medial subcutaneous fat at the level of the talonavicular joint, there is a complex heterogeneous, septated predominantly T2 hyperintense and T1 hypointense clustered mass. The mass measures approximately 3.9 x 1.7 x 3.3 centimeters. The mass contains multiple areas of internal segmentation as well as peripheral thickening. There is some mild postcontrast enhancement on the post-contrast sequences. This is of uncertain clinical etiology and underlying neoplasm such as synovial sarcoma cannot be excluded. Additional etiologies are not excluded and correlation with soft tissue and or excisional biopsy is recommended if clinically indicated. This mass appears to approximate the medial cortex of the navicular bone. No gross signal abnormality noted within the medial aspect of the navicular bone on the T1 and STIR sequences; however, there is some minimal increased signal on the post-contrast sequences as demonstrated on series 13 image 14, nonspecific. Incidentally noted is a small rounded cystic foci seen measuring 6 x 6 x 6 millimeters within the posterior soft tissues at the level of the talus as demonstrated on series 7, image 20 and series 10, image 31. This demonstrates primarily decreased T1 signal and increased STIR signal with a small internal focus of low STIR signal within the lesion. This is of uncertain clinical etiology and may represent a small synovial cyst and or ganglia versus traversing vessel versus additional etiology. Continued interval follow-up may be helpful if clinically indicated. These findings were discussed with Dr. Alvarenga at 1:30 p.m. on 01/14/2018.
--- NOTE | 2018-01-14 14:43 | US ---
Abdominal ultrasound HISTORY: Elevated liver enzymes. COMPARISON: None available. TECHNIQUE: Real-time sonography was performed through the abdomen. FINDINGS: LIVER: 16.1 centimeters in length. Increased echogenicity of the hepatic parenchymal cortex suggestive for fatty infiltration versus hepatic parenchymal disease. Clinical correlation. GALLBLADDER: No calculi or sludge. Normal wall thickness of 1.9 millimeters. Negative sonographic Polanco's sign. Common bile duct measures 1.9 millimeters, within normal limits. Limited visualization of the pancreas. Spleen measures 9.9 centimeters in length, within normal limits. Limited visualization of the aorta. IVC grossly preserved. RIGHT KIDNEY: 11.3 x 3.7 x 4.4 centimeters. No calculi or hydronephrosis. LEFT KIDNEY: 11.2 x 6.3 x 5.7 centimeters. No calculi or hydronephrosis. IMPRESSION: 1. Increased echogenicity of the hepatic parenchymal cortex suggestive for fatty infiltration versus hepatic parenchymal disease. Clinical correlation. 2. Limited visualization of the pancreas
--- NOTE | 2018-01-14 18:29 | CP.PCM.PN ---
Subjective - Date & Time of Evaluation Date of Evaluation: 01/14/18 Time of Evaluation: 08:30 - Subjective Subjective: clinically same Objective - Vital Signs/Intake and Output Vital Signs (last 24 hours): Temp Pulse Resp BP Pulse Ox 99.1 F 69 20 128/75 98 01/14/18 15:00 01/14/18 15:00 01/14/18 15:00 01/14/18 15:00 01/14/18 15:00 Intake and Output: 01/14/18 01/14/18 06:59 18:59 Intake Total 500 Balance 500 - Medications Medications: Current Medications Amlodipine Besylate (Norvasc) 5 mg PO DAILY [facility] Last Admin: 01/14/18 09:47 Dose: 5 mg Clonidine HCl (Catapres) 0.1 mg PO Q8 [facility] Last Admin: 01/14/18 14:13 Dose: 0.1 mg Folic Acid (Folic Acid) 1 mg PO DAILY [facility] Last Admin: 01/14/18 09:47 Dose: 1 mg Heparin Sodium (Porcine) (Heparin) 5,000 units SC Q12 [facility] Last Admin: 01/14/18 09:47 Dose: 5,000 units Piperacillin Sod/Tazobactam (Sod 3.375 gm/ Sodium Chloride) 100 mls @ 200 mls/hr IVPB Q8H [facility]; Protocol Last Admin: 01/14/18 17:34 Dose: 200 mls/hr Influenza Virus Vaccine (Fluzone Quad [id number]) 60 mcg IM .ONCE ONE Stop: 01/15/18 10:01 Pantoprazole Sodium (Protonix Ec Tab) 40 mg PO DAILY [facility] Last Admin: 01/14/18 09:47 Dose: 40 mg Pneumococcal Polyvalent Vaccine (Pneumovax 23 Vaccine) 0.5 ml IM .ONCE ONE Stop: 01/15/18 10:01 Thiamine HCl (Vitamin B1 Tab) 100 mg PO BID [facility] Last Admin: 01/14/18 17:34 Dose: 100 mg Tramadol HCl (Ultram) 50 mg PO Q6 PRN PRN Reason: Pain, moderate (4-7) - Labs Labs: 01/14/18 06:43 01/14/18 06:43 PT 12.7 SECONDS (9.7-12.2) H 01/14/18 06:43 INR 1.2 01/14/18 06:43 APTT 30 SECONDS (21-34) 01/14/18 06:43
[2018-01-15 00:41] VITALS: TEMP 98.1; O2SAT 99
[2018-01-15] MEDS: Piperacillin/Tazobact 3.375 GM in Sodium Chloride 100 ML IVPB SCH ×2 (01:40→10:05)
[2018-01-15 07:21] LABS: BASO % 0.8 % (0.0-2.0); EOS # 0.1 K/uL (0.0-0.7); EOS % 1.4 % (0.0-4.0); HEMOGLOBIN 12.6 g/dL (12.0-18.0); LYMPH # 0.9 K/uL (1.0-4.3); MEAN CELL VOLUME 101.4 fL (80.0-94.0); MEAN CORPUSCULAR HEMOGLOBIN 35.4 pg (27.0-31.0); MEAN CORPUSCULAR HGB CONC 34.9 g/dL (33.0-37.0); MEAN PLATELET VOLUME 9.1 fL (7.2-11.7); MONO # 0.5 K/uL (0.0-0.8); NEUT # 2.1 K/uL (1.8-7.0); NEUT % 58.8 % (50.0-75.0); NRBC % 0.1 % (0.0-2.0); RBC 3.57 Mil/uL (4.40-5.90); WHITE BLOOD COUNT 3.6 K/uL (4.8-10.8)
[2018-01-15 07:49] VITALS: BP 127/85; PULSE 63
[2018-01-15 07:52] LABS: ALB/GLOB RATIO 1.1 (1.0-2.1); ALBUMIN 3.9 g/dL (3.5-5.0); ALT/SGPT 101 U/L (21-72); AST/SGOT 161 U/L (17-59); BLOOD UREA NITROGEN 17 mg/dL (9-20); CALCIUM 8.7 mg/dl (8.6-10.4); GFR NON-AFRICAN AMERICAN > 60
[2018-01-15] MEDS: Pantoprazole 40 mg EC Tab PO SCH (09:59)
[2018-01-15] MEDS: Saccharomyces Boulardi 250 mg Cap PO SCH ×2 (09:59→17:01)
[2018-01-15] MEDS ORDERED: Influenza Vaccine 60 MCG/0.5 ML SYR (3 yr & up) IM ONE (10:00)
[2018-01-15] MEDS ORDERED: Pneumococcal 23-Valent Vaccine IM ONE (10:00)
--- NOTE | 2018-01-15 11:40 | CP.PCM.PN ---
Subjective - Date & Time of Evaluation Date of Evaluation: 01/15/18 Time of Evaluation: 08:00 - Subjective Subjective: clinically same Objective - Vital Signs/Intake and Output Vital Signs (last 24 hours): Temp Pulse Resp BP Pulse Ox 98.1 F 63 20 127/85 99 01/15/18 07:47 01/15/18 07:47 01/15/18 07:47 01/15/18 07:47 01/15/18 07:47 Intake and Output: 01/15/18 01/15/18 06:59 18:59 Intake Total 280 Balance 280 - Medications Medications: Current Medications Amlodipine Besylate (Norvasc) 5 mg PO DAILY [facility] Last Admin: 01/15/18 09:59 Dose: 5 mg Clonidine HCl (Catapres) 0.1 mg PO Q8 [facility] Last Admin: 01/15/18 05:48 Dose: 0.1 mg Folic Acid (Folic Acid) 1 mg PO DAILY [facility] Last Admin: 01/15/18 09:59 Dose: 1 mg Heparin Sodium (Porcine) (Heparin) 5,000 units SC Q12 [facility] Last Admin: 01/15/18 10:00 Dose: Not Given Piperacillin Sod/Tazobactam (Sod 3.375 gm/ Sodium Chloride) 100 mls @ 200 mls/hr IVPB Q8H [facility]; Protocol Last Admin: 01/15/18 10:05 Dose: 200 mls/hr Pantoprazole Sodium (Protonix Ec Tab) 40 mg PO DAILY [facility] Last Admin: 01/15/18 09:59 Dose: 40 mg Saccharomyces Boulardii (Florastor) 250 mg PO BID [facility] Last Admin: 01/15/18 09:59 Dose: 250 mg Thiamine HCl (Vitamin B1 Tab) 100 mg PO BID [facility] Last Admin: 01/15/18 09:59 Dose: 100 mg Tramadol HCl (Ultram) 50 mg PO Q6 PRN PRN Reason: Pain, moderate (4-7) - Labs Labs: 01/15/18 07:11 01/15/18 07:11 PT 12.7 SECONDS (9.7-12.2) H 01/14/18 06:43 INR 1.2 01/14/18 06:43 APTT 30 SECONDS (21-34) 01/14/18 06:43 - Constitutional Appears: Well - Head Exam Head Exam: ATRAUMATIC, NORMAL INSPECTION, NORMOCEPHALIC - Eye Exam Eye Exam: EOMI, Normal appearance, PERRL Pupil Exam: NORMAL ACCOMODATION, PERRL - ENT Exam ENT Exam: Mucous Membranes Moist, Normal Exam - Neck Exam Neck Exam: Full ROM, Normal Inspection. absent: Lymphadenopathy - Respiratory Exam Respiratory Exam: Decreased Breath Sounds - Cardiovascular Exam Cardiovascular Exam: REGULAR RHYTHM, +S1, +S2 - GI/Abdominal Exam GI & Abdominal Exam: Soft, Diminished Bowel Sounds - Rectal Exam Rectal Exam: Deferred
--- NOTE | 2018-01-15 15:58 | CP.PCM.PN ---
Subjective - Date & Time of Evaluation Date of Evaluation: 01/15/18 Time of Evaluation: 09:45 - Subjective Subjective: Medicine Progress Note (Dr. Jason Erickson's service) Patient seen and examined at bedside. As per nursing staff, patient had no acute issues overnight. Patient denies any chest pain, fevers, chills, nausea, vomiting, headaches, dizziness, abdominal pain, palpitations, syncopal episodes, left leg pain or any other complaints. Objective - Vital Signs/Intake and Output Vital Signs (last 24 hours): Temp Pulse Resp BP Pulse Ox 98.1 F 63 20 127/85 99 01/15/18 07:47 01/15/18 07:47 01/15/18 07:47 01/15/18 07:47 01/15/18 07:47 Intake and Output: 01/15/18 01/15/18 06:59 18:59 Intake Total 280 Balance 280 - Medications Medications: Current Medications Amlodipine Besylate (Norvasc) 5 mg PO DAILY [facility] Last Admin: 01/15/18 09:59 Dose: 5 mg Clonidine HCl (Catapres) 0.1 mg PO Q8 [facility] Last Admin: 01/15/18 13:05 Dose: 0.1 mg Folic Acid (Folic Acid) 1 mg PO DAILY [facility] Last Admin: 01/15/18 09:59 Dose: 1 mg Heparin Sodium (Porcine) (Heparin) 5,000 units SC Q12 [facility] Last Admin: 01/15/18 10:00 Dose: Not Given Piperacillin Sod/Tazobactam (Sod 3.375 gm/ Sodium Chloride) 100 mls @ 200 mls/hr IVPB Q8H [facility]; Protocol Last Admin: 01/15/18 10:05 Dose: 200 mls/hr Pantoprazole Sodium (Protonix Ec Tab) 40 mg PO DAILY [facility] Last Admin: 01/15/18 09:59 Dose: 40 mg Saccharomyces Boulardii (Florastor) 250 mg PO BID [facility] Last Admin: 01/15/18 09:59 Dose: 250 mg Thiamine HCl (Vitamin B1 Tab) 100 mg PO BID [facility] Last Admin: 01/15/18 09:59 Dose: 100 mg Tramadol HCl (Ultram) 50 mg PO Q6 PRN PRN Reason: Pain, moderate (4-7) - Labs Labs: 01/15/18 07:11 01/15/18 07:11 PT 12.7 SECONDS (9.7-12.2) H 01/14/18 06:43 INR 1.2 01/14/18 06:43 APTT 30 SECONDS (21-34) 01/14/18 06:43 - Constitutional Appears: Well, No Acute Distress - Head Exam Head Exam: ATRAUMATIC, NORMAL INSPECTION - Eye Exam Eye Exam: EOMI, Normal appearance - ENT Exam ENT Exam: Mucous Membranes Dry - Respiratory Exam Respiratory Exam: Clear to Ausculation Bilateral, NORMAL BREATHING PATTERN. absent: Decreased Breath Sounds, Prolonged Expiratory Phase, Rhonchi, Wheezes, Respiratory Distress - Cardiovascular Exam Cardiovascular Exam: REGULAR RHYTHM, +S1, +S2. absent: Murmur - GI/Abdominal Exam GI & Abdominal Exam: Soft, Normal Bowel Sounds. absent: Distended, Firm, Guarding, Rigid, Tenderness - Extremities Exam Extremities Exam: absent: Calf Tenderness, Pedal Edema Additional comments: Left leg dorsal medial mass, dressing is clean, dry and intact DP and PT pulses intact - Neurological Exam Neurological Exam: Alert, Awake, Oriented x3 - Psychiatric Exam Psychiatric exam: Normal Affect, Normal Mood. absent: Agitated, Anxious, Depressed - Skin Skin Exam: Normal Color Assessment and Plan (1) Other cyst of bone, left ankle and foot Assessment & Plan: - MRI with contrast: Again identified within the medial subcutaneous fat at the level of the talonavicular joint, there is a complex heterogeneous, septated predominantly T2 hyperintense and T1 hypointense clustered mass. The mass measures approximately 3.9 x 1.7 x 3.3 centimeters. The mass contains multiple areas of internal segmentation as well as peripheral thickening. There is some mild postcontrast enhancement on the post-contrast sequences. This is of uncertain clinical etiology and underlying neoplasm such as synovial sarcoma cannot be excluded. Additional etiologies are not excluded and correlation with soft tissue and or excisional biopsy is recommended if clinically indicated. This mass appears to approximate the medial cortex of the navicular bone. No gross signal abnormality noted within the medial aspect of the navicular bone on the T1 and STIR sequences; however, there is some minimal increased signal on the post-contrast sequences as demonstrated on series 13 image 14, nonspecific. Incidentally noted is a small rounded cystic foci seen measuring 6 x 6 x 6 millimeters within the posterior soft tissues at the level of the talus as demonstrated on series 7, image 20 and series 10, image 31. This demonstrates primarily decreased T1 signal and increased STIR signal with a small internal focus of low STIR signal within the lesion. This is of uncertain clinical etiology and may represent a small synovial cyst and or ganglia versus traversing vessel versus additional etiology. Continued interval follow-up may be helpful if clinically indicated. -Foot xray: Abnormal soft tissue protuberance medial midfoot level -Soft tissue mass pathology report: Fragments of skin with keratosis, separate fragment of fibrous tissue with acute inflammatory cells and bacteria. Note: Given the radiologic appearance and size of the mass, a deeper neoplastic process can not be evaluated in this tissue biopsy. A repeat biopsy/excision is recommended for further evaluation if clinically appropriate - MRI without contrast: Within the subcutaneous fat of the medial foot at the level of the talonavicular joint, there is a heterogeneous complex cystic mass measuring approximately 3.5 cm with an adjacent solid component measuring 1.5 cm Envelope Cutter, Dr. Alvarenga on board---> Help appreciated * Plans for outpatient follow up and excisional biopsy Status: Acute (2) History of hypertension Assessment & Plan: Norvasc 5mg PO daily Status: Acute (3) Transaminitis Assessment & Plan: Abdomen US: Noted for fatty liver disease; Increased echogenicity of the hepatic parenchymal cortex suggestive for fatty infiltration versus hepatic parenchymal disease. - Avoid hepatotoxic agents Status: Acute (4) Prophylactic measure Assessment & Plan: -Heparin 5000 units SC Q12 -Protonix 40 mg PO Daily -Folic Aci 1mg PO Daily -Thiamine 100 mg PO BID Disposition: Patient to be discharge home Care has been coordinated with Podiatry team and patient will follow up appropriately Patient will follow up with his PMD or Dr. Jess Erickson in 1-2 days Please keep pressure off the left foot Please take care All plans and management discussed with Dr. Jess Erickson Status: Acute
--- NOTE | 2018-01-15 16:57 | CP.PCM.PN ---
Subjective - Date & Time of Evaluation Date of Evaluation: 01/15/18 Time of Evaluation: 16:55 - Subjective Subjective: Podiatry Progress Note for Dr. Alvarenga 57M seen at bedside for dorsal left foot soft tissue mass. Patient is AAO x 3 and NAD at time of visit. Denies any acute overnight events or new pedal complaints. States that he needs to go home to handle some problems with his car/license and shop for his . He denies any pain to his mass site. Denies any recent N/V/F/C/CP/SOB/D Objective - Vital Signs/Intake and Output Vital Signs (last 24 hours): Temp Pulse Resp BP Pulse Ox 98.1 F 63 20 127/85 99 01/15/18 07:47 01/15/18 07:47 01/15/18 07:47 01/15/18 07:47 01/15/18 07:47 Intake and Output: 01/15/18 01/15/18 06:59 18:59 Intake Total 280 Balance 280 - Medications Medications: Current Medications Amlodipine Besylate (Norvasc) 5 mg PO DAILY [facility] Last Admin: 01/15/18 09:59 Dose: 5 mg Clonidine HCl (Catapres) 0.1 mg PO Q8 [facility] Last Admin: 01/15/18 13:05 Dose: 0.1 mg Folic Acid (Folic Acid) 1 mg PO DAILY [facility] Last Admin: 01/15/18 09:59 Dose: 1 mg Heparin Sodium (Porcine) (Heparin) 5,000 units SC Q12 [facility] Last Admin: 01/15/18 10:00 Dose: Not Given Piperacillin Sod/Tazobactam (Sod 3.375 gm/ Sodium Chloride) 100 mls @ 200 mls/hr IVPB Q8H [facility]; Protocol Last Admin: 01/15/18 10:05 Dose: 200 mls/hr Pantoprazole Sodium (Protonix Ec Tab) 40 mg PO DAILY [facility] Last Admin: 01/15/18 09:59 Dose: 40 mg Saccharomyces Boulardii (Florastor) 250 mg PO BID [facility] Last Admin: 01/15/18 09:59 Dose: 250 mg Thiamine HCl (Vitamin B1 Tab) 100 mg PO BID [facility] Last Admin: 01/15/18 09:59 Dose: 100 mg Tramadol HCl (Ultram) 50 mg PO Q6 PRN PRN Reason: Pain, moderate (4-7) - Labs Labs: 01/15/18 07:11 01/15/18 07:11 PT 12.7 SECONDS (9.7-12.2) H 01/14/18 06:43 INR 1.2 01/14/18 06:43 APTT 30 SECONDS (21-34) 01/14/18 06:43 - Constitutional Appears: Well, Non-toxic, No Acute Distress - Extremities Exam Additional comments: LLE focused exam: Vasc: DP/PT pulses palpable 2/4. Temperature gradient warm to warm from proximal to distal WNL. CFT < 3 sec to all digits. No pedal edema noted Derm: Open ruptured soft tissue mass noted to the dorsal aspect of midfoot with significant serosanguinous drainage noted. Mass is measuring [id number]. Borders of mass are well circumscribed. Mass is firm to palpation. No purulence, no malodor and macerated borders Neuro: Epicritic and protective sensation grossly intact Ortho: moderate-severe tenderness to palpation of soft tissue mass - Neurological Exam Neurological Exam: Alert, Awake, Oriented x3 - Psychiatric Exam Psychiatric exam: Normal Affect, Normal Mood Assessment and Plan - Assessment and Plan (Free Text) Assessment: 57M seen at bedside for dorsal left foot soft tissue mass Plan: Patient seen and evaluated Plan discussed with Dr. Alvarenga Afebrile, absent leukocytosis Continue abx per ID LLE MRI: Again identified within the medial subcutaneous fat at the level of the talonavicular joint, there is a complex heterogeneous, septated predominantly T2 hyperintense and T1 hypointense clustered mass. The mass measures approximately 3.9 x 1.7 x 3.3 centimeters. The mass contains multiple areas of internal segm entation as well as peripheral thickening. There is some mild postcontrast enhancement on the post-contrast sequences. This is of uncertain clinical etiology and underlying neoplasm such as synovial sarcoma cannot be excluded. Additional etiologies are not excluded and correlation with soft tissue and or excisional biopsy is recommended if clinically indicated. This mass appears to approximate the medial cortex of the navicular bone. No gross signal abnormality noted within the medial aspect of the navicular bone on the T1 and STIR sequences; however, there is some minimal increased signal on the post-contrast sequences as demonstrated on series 13 image 14, nonspecific. Incidentally noted is a small rounded cystic foci seen measuring 6 x 6 x 6 millimeters within the posterior soft tissues at the level of the talus as demonstrated on series 7, image 20 and series 10, image 31. This demonstrates primarily decreased T1 signal and increased STIR signal with a small internal focus of low STIR signal within the lesion. This is of uncertain clinical etiology and may represent a small synovial cyst and or ganglia versus traversing vessel versus additional etiology. Continued interval follow-up may be helpful if clinically indicated. Patient scheduled for excisional biopsy of soft tissue mass on Thursday 01/18 Patient will be discharged home for time being and will return to hospital on Sunday for surgical procedure Patient demonstrated good understanding when surgical plan was explained to him Soft tissue mass dressed with xeroform, DSD
== END 2018-01-15 17:54 | disposition home or self-care (01) | DRG 466 ==
LOC: C.ER 10:28 → C.9E 11:00 → C.3T 12:14
PROVIDERS: ADMIT Internal Medicine Nephrology; ATTEND Internal Medicine Nephrology
DX: S91.002D Unspecified open wound, left ankle, subsequent encounter (principal); K76.0 Fatty (change of) liver, not elsewhere classified; I10 Essential (primary) hypertension; Z79.899 Other long term (current) drug therapy

== ENCOUNTER 2018-01-18 06:56 | Day surgery (SDC) | payer MEDICAID ==
[2018-01-18] MEDS ORDERED: Bupivacaine 0.25% 20 ML INJ IJ ONE (07:36)
[2018-01-18] MEDS ORDERED: Lidocaine 2% MPF (5 ml) Inj ONE ×2 (07:36)
[2018-01-18] MEDS ORDERED: ceFAZolin IV 1 gm in Dextrose 2 GM/100 ML BAG IVPB ONE (07:36)
--- NOTE | 2018-01-18 07:39 | C.PDOC ---
History Of Present Illness 57 year old male presents to the ED for left foot procedure today. Per old records, patient is scheduled for excisional biopsy of soft tissue mass on Thursday 01/18. Notes clear bloody liquid discharge from wound since he was discharged. Denies any fever, chills, or any other associated symptoms. FOR L FOOT PROCEDURE TODAY. PER OLD RECORDS SCHEDULED for excisional biopsy of soft tissue mass on Thursday 01/18. PS W CLEAR BLOODY LIQUID DC FROM WOUND SINCE DC. DENIES FEVER, CHILLS OR OTHER NEW ASSOC SX. EXAM NAD NONTOXIC Extremity: Normal ROM (FAROM of left ankle and foot, no neurovascular deficits), Tenderness (medial malleolus left ankle), No Calf Tenderness (left), Capillary Refill (less than 2sec to left foot), No Deformity, No Swelling, SKIN Other (open wound 4cm diameter over medial malleolus left ankle with packed cotton in wound, mild bloody continous oozing noted from wound. No edema, no erythema.) [facility] LLE MRI REPORT REVIEWED. TO OR NPO SINCE 2099 Time Seen by Provider: 01/18/18 07:34 History Per: Patient History/Exam Limitations: no limitations Onset/Duration Of Symptoms: Days Past Medical History Reviewed: Historical Data, Nursing Documentation, Vital Signs - Medical History PMH: HTN Surgical History: No Surg Hx Family History: States: No Known Family Hx - Social History Hx Alcohol Use: Yes Hx Substance Use: No Review Of Systems Except As Marked, All Systems Reviewed And Found Negative. Constitutional: Negative for: Fever, Chills Skin: Positive for: Other (open wound to left ankle ) Physical Exam - Physical Exam Appears: Non-toxic, No Acute Distress Skin: No Rash, Other (open wound 4cm diameter over medial malleolus left ankle with packed cotton in wound, mild bloody continous oozing noted from wound. No edema, no erythema.) Head: Normacephalic Eye(s): bilateral: Normal Inspection Neck: Supple Chest: Symmetrical Respiratory: No Rales, No Rhonchi, No Wheezing, Other (NARD) Extremity: Normal ROM (FAROM of left ankle and foot, no neurovascular deficits), Tenderness (medial malleolus left ankle), Calf Tenderness (left), Capillary Refill (less than 2sec to left foot), No Deformity, No Swelling Neurological/Psych: Oriented x3, Normal Speech ED Course And Treatment ECG: Interpreted By Me ECG Rhythm: Sinus Rhythm, 1st Degree HB ECG Interpretation: Normal Rate From EC O2 Sat by Pulse Oximetry: 98 (RA) Pulse Ox Interpretation: Normal - Radiology CXR: Interpreted by Me CXR Interpretation: Yes: No Acute Disease Progress - Data Reviewed Data Reviewed: Lab, Old records Medical Decision Making Medical Decision Making: LLE MRI REPORT REVIEWED. TO OR NPO SINCE 2099 Disposition Counseled Patient/Family Regarding: Studies Performed, Diagnosis - Disposition Disposition: HOSPITALIZED Disposition Time: 07:42 Condition: STABLE - POA Present On Arrival: None - Clinical Impression Clinical Impression: Bleeding from wound, Other cyst of bone, left ankle and foot - Scribe Statement The provider has reviewed the documentation as recorded by the Scribe May Parker All medical record entries made by the Scribe were at my direction and personally dictated by me. I have reviewed the chart and agree that the record accurately reflects my personal performance of the history, physical exam, medical decision making, and the department course for this patient. I have also personally directed, reviewed, and agree with the discharge instructions and disposition.
[2018-01-18] MEDS ORDERED: Bupivacaine HCl 0.5% PF (30 ml) Inj ONE (07:48)
[2018-01-18] MEDS ORDERED: Lidocaine Hydrochloride 20 ML INJ ONE (07:49)
[2018-01-18 08:23] LABS: INR 1.1; PROTHROMBIN TIME 11.7 SECONDS (9.7-12.2)
[2018-01-18] MEDS ORDERED: Midazolam 2 MG/2 ML VIAL ONE (08:34)
[2018-01-18] MEDS ORDERED: Propofol 10 mg/ml Inj (20 ML) ONE (08:34)
--- NOTE | 2018-01-18 08:35 | CP.PCM.HP ---
Past Patient History - Past Medical History & Family History Past Medical History?: Yes - Past Social History Smoking Status: Never Smoked - CARDIAC Hx Hypertension: Yes - MUSCULOSKELETAL/RHEUMATOLOGICAL Hx Falls: No - PSYCHIATRIC Hx Substance Use: No - SURGICAL HISTORY Hx Surgeries: No - ANESTHESIA Hx Anesthesia: No Meds Allergies/Adverse Reactions: Allergies Allergy/AdvReac Type Severity Reaction Status Date / Time No Known Allergies Allergy Verified 01/18/18 07:41 Results - Vital Signs Recent Vital Signs: Last Vital Signs Temp 99 F 01/18/18 07:37 Pulse 76 01/18/18 07:37 Resp 17 01/18/18 07:37 BP 161/99 H 01/18/18 07:37 Pulse Ox 98 01/18/18 08:15 - Labs Labs: Laboratory Results - last 24 hr 01/18/18 01/18/18 08:02 08:15 PT 11.7 INR 1.1 APTT 30 POC Glucose (mg/dL) 76 Assessment & Plan - Assessment and Plan (Free Text) Plan: pt is medically stable for surgery with risk related to age and co morbid condition discussed with podiatry staff
--- NOTE | 2018-01-18 09:38 | RAD ---
Date of service: 01/18/2018 HISTORY: PREOP COMPARISON: No prior. TECHNIQUE: Chest PA and lateral FINDINGS: LUNGS: No active pulmonary disease. PLEURA: No significant pleural effusion identified. No pneumothorax apparent. CARDIOVASCULAR: No discernible aortic atherosclerotic calcification present. Normal cardiac size. No pulmonary vascular congestion. OSSEOUS STRUCTURES: Minor multilevel degenerative spondylosis of the thoracic spine VISUALIZED UPPER ABDOMEN: Normal. OTHER FINDINGS: None. IMPRESSION: No active disease.
--- NOTE | 2018-01-18 10:15 | CP.PCM.CON ---
History of Present Illness - History of Present Illness History of Present Illness: Podiatry Consult for Dr. Alvarenga 57 y/o male with PMHx of HTN seen in ED for left foot ruptured mass. He states he has had a slowly enlarging mass on the inside of the left foot for approx a year and a half. Patient states he has been seen by Podiatry in the past for similar complaints. Patient states his fiance was dressing the wound, however, this time it ruptured as a bag fell on it. He admits to significant pain. Denies F/C/N/V/CP/SOB. Denies tingling, numbness or burning in the left lower extremity. States he was advised to come to the emergency room for removal of soft tissue mass in the operating room. Patient admits to being NPO PSH: denies All: NKDA SocHx: social EtOH; denies cigarette or illicit drug use Past Patient History - Past Medical History & Family History Past Medical History?: Yes - Past Social History Smoking Status: Never Smoked - CARDIAC Hx Hypertension: Yes - MUSCULOSKELETAL/RHEUMATOLOGICAL Hx Falls: No - PSYCHIATRIC Hx Substance Use: No - SURGICAL HISTORY Hx Surgeries: No - ANESTHESIA Hx Anesthesia: No Meds Allergies/Adverse Reactions: Allergies Allergy/AdvReac Type Severity Reaction Status Date / Time No Known Allergies Allergy Verified 01/18/18 07:41 Physical Exam - Constitutional Appears: Well, Non-toxic - Head Exam Head Exam: ATRAUMATIC - Extremities Exam Additional comments: LLE focused exam: Vasc: DP/PT pulses palpable 2/4. Temperature gradient warm to cool. CFT < 3 sec to all digits. No pedal edema noted Derm: Open ruptured cystic mass noted to medial aspect of midfoot with sig nificant sanguinous drainage noted. Mass is measuring [id number]. Borders of mass are well circumscribed. Mass is firm to palpation. No purulence, positive malodor. macerated borders Neuro: Protective sensation grossly intact Ortho: moderate-severe tenderness to palpation of cystic mass - Neurological Exam Neurological exam: Alert, Oriented x3 - Psychiatric Exam Psychiatric exam: Normal Affect - Skin Skin Exam: Normal Color Results - Vital Signs Recent Vital Signs: Last Vital Signs Temp 99 F 01/18/18 07:37 Pulse 76 01/18/18 07:37 Resp 17 01/18/18 07:37 BP 161/99 H 01/18/18 07:37 Pulse Ox 98 01/18/18 08:15 - Labs Labs: Laboratory Results - last 24 hr 01/18/18 01/18/18 01/18/18 08:02 08:02 08:15 PT 11.7 INR 1.1 APTT 30 POC Glucose (mg/dL) 76 Blood Type AB POSITIVE Antibody Screen Negative Assessment & Plan - Assessment and Plan (Free Text) Assessment: 57 y/o male with painful left foot soft tissue mass Plan: Patient was seen and evaluated in the Emergency Department Plan was discussed with Dr. Alvarenga Previous Imaging reviewed -X-rays of L foot reveal soft tissue mass with no osseous involvement, localized to medial midfoot - L foot MRI without contrast done in 01/02/2018 shows abnormal soft tissue mass at the medial midfoot level. Consider Correlation with L foot MRI with contrast. Distal talar medial cortex integrity indeterminate on single view. -Pathology report of the mass: fragments of skin with keratosis with separate fragment of fibrinous tissue with acute inflammatory cells and bacterial. Patient will be taking into the OR today for removal of soft tissue mass on the left foot Foot dressed with DSD NPO status was confirmed Medical clearance by Dr. Erickson All questions and concerns answered Thank you for the consult
[2018-01-18] MEDS ORDERED: Oxycodone/Acetaminophen 5/325 mg Tab PO PRN ×2 (10:17)
--- NOTE | 2018-01-18 10:17 | PCM.SURG1 ---
Surgeon's Initial Post Op Note - Surgeon's Notes Surgeon: Dr. Alvarenga Cam Milling Machine Operator: Sayra Can PGY2, Diane Robles PGY1 Type of Anesthesia: General LMA, Local (20cc 1:1 mixture 1% lidocaine & 0.5% marcaine) Anesthesia Administered By: Dr. Lopez Pre-Operative Diagnosis: Left foot soft tissue mass Operative Findings: See operative report. Materials: 2-0 prolene Post-Operative Diagnosis: Same Operation Performed: Left foot excision of soft tissue mass Specimen/Specimens Removed: Soft tissue mass r/o malignancy. Frozen section - posterior proximal margin = prolene, anterior distal margin = nylon Estimated Blood Loss: EBL {In ML}: 3 Blood Products Given: N/A Drains Used: No Drains Post-Op Condition: Good Date of Surgery/Procedure: 01/18/18 Time of Surgery/Procedure: 10:17
[2018-01-18] MEDS ORDERED: HYDROmorphone 0.5 mg/0.5 ml ISec IVP PRN (10:26)
[2018-01-18] MEDS ORDERED: Lactated Ringer's 1,000 ML IV SCH (10:30)
[2018-01-18 11:35] VITALS: RESP 18; TEMP 97.7
[2018-01-18 13:52] VITALS: BP 146/90; PULSE 74
[2018-01-18 18:17] VITALS: O2SAT 98
--- NOTE | 2018-01-21 19:48 | CARD ---
APPROVED REPORT Date of service: 01/18/2018 EKG Measurement Heart [id number] <Conclusion> Sinus rhythm with 1st degree AV block Nonspecific ST and T wave abnormality Abnormal ECG
--- NOTE | 2018-01-23 15:40 | OP ---
PROCEDURE DATE: 01/18/2018 SURGEON: Lilia Alvarenga DPM ASSISTANTS: Ariana Can DPM, PGY-2; Kristin Robles, PGY-1 ANESTHESIOLOGIST: Tony Lopez DO ANESTHESIA: General LMA with local, 20 mL of 1:1 mixture of 1% lidocaine plain and 0.5% Marcaine plain. PREOPERATIVE DIAGNOSIS: Left foot soft tissue mass. POSTOPERATIVE DIAGNOSIS: Left foot soft tissue mass. PROCEDURE: Left foot excision of soft tissue mass. INDICATION: The patient is a 57-year-old male with the above-mentioned diagnosis. The patient has had a soft tissue mass along the medial aspect of his left foot. He received a punch biopsy of that soft tissue mass in the Podiatry Clinic several weeks ago that came back inconclusive. This is of uncertain clinical etiology underlying neoplasm such as synovial sarcoma cannot be excluded. Additional etiologies cannot be excluded as well. Therefore, an excisional biopsy was recommended at this time. The patient signed a consent after careful explanation of risks, benefits, alternatives and complications of the procedure and wishes to proceed. No guarantees were given or implied. N.p.o. was confirmed prior to taking the patient to the operating room. PREPARATION: The patient was brought into the operating room, placed on the operating room table in supine position. Timeout was performed for identification of the correct patient and procedure. After the induction of IV sedation, a total of 20 mL of 1:1 mixture of 1% lidocaine plain and 0.5% Marcaine plain was administered in a tibial nerve block fashion to the left lower extremity. Once local anesthesia was achieved, the left foot was then prepped and draped in normal sterile manner. The left lower extremity was elevated to exsanguinate the limb for three minutes and then the procedure began. Another tourniquet was utilized during this procedure. DESCRIPTION OF PROCEDURE: Attention was directed to the medial aspect of the left foot, where an open ruptured cystic mass was noted to the dorsal aspect of the midfoot with significant sanguineous drainage present. The mass was noted to measure approximately 4 x 3 cm with borders well subscribed. Utilizing a 15 blade, the lesion was excised along with adjacent healthy skin in a 3:1 ratio. This dissection was carried down through subcutaneous layers with care being taken to identify and retract all vital neurovascular structures. All bleeders were cauterized and ligated as necessary. Upon dissection, it was noted that the soft tissue mass was able to be dissected from the subcutaneus layers with no extension deep in the subcutaneous layers. The mass was passed from the operative field, will be sent immediately for frozen section to rule out malignancy. The posterior proximal margin of the soft location was tied with Prolene and anterior distal margin was tied with nylon. The wound was then flushed with copious amounts of sterile normal saline and the wound was then reapproximated using 2-0 Prolene with a deficit remaining centrally. POSTOPERATIVE CONDITION: The patient tolerated the procedure and anesthesia well and was escorted to the recovery room with vital signs stable and neurovascular status intact to the left lower extremity. The patient will be strictly nonweightbearing and will follow up with Dr. Alvarenga in the Podiatry Clinic next Sunday. Ariana Can DPM Lilia Alvarenga DPM
== END 2018-01-18 13:18 | disposition home or self-care (01) ==
LOC: C.ER 06:56 → C.SDS 06:56
PROVIDERS: ATTEND Internal Medicine Nephrology
DX: D23.72 Other benign neoplasm of skin of left lower limb, including hip (principal); M79.9 Soft tissue disorder, unspecified; I10 Essential (primary) hypertension
CPT/HCPCS: 11424; 36415; 71046; 82948; 85610; 85730; 86850; 86900; 88307; 88331; 93005; 97116; 97161; 99285; G8978; G8979; G8980; J0690; J2250; J2704; J3010

== ENCOUNTER 2018-02-11 06:34 | Day surgery (SDC) | payer MEDICAID ==
[2018-02-08 07:39] VITALS: BMI 24.7
[~2018-02-11 06:34] MED LIST: Bupivacaine 0.25% 20 ML INJ IJ ONE; Lidocaine 2% MPF (5 ml) Inj ONE; ceFAZolin 1 gm FROZEN Premix 1 GM/50 ML ML IVPB ONE
[2018-02-11] MEDS ORDERED: Propofol 10 mg/ml Inj (20 ML) ONE ×2 (08:03→08:34)
[2018-02-11] MEDS ORDERED: Midazolam 2 MG/2 ML VIAL ONE (08:03)
[2018-02-11] MEDS ORDERED: ceFAZolin 1 gm in NS 1 GM/100 ML BAG IVPB ONE (08:27)
[2018-02-11] MEDS ORDERED: Oxycodone/Acetaminophen 5/325 mg Tab PO PRN ×2 (09:17)
--- NOTE | 2018-02-11 09:17 | PCM.SURG1 ---
Surgeon's Initial Post Op Note - Surgeon's Notes Surgeon: Dr. Alvarenga Building Inspector: Dr. Santo DPM PGY-3 Type of Anesthesia: IV Sedation, Local Anesthesia Administered By: Dr. Caballero Pre-Operative Diagnosis: left foot non-healing wound Operative Findings: see dictation Post-Operative Diagnosis: same Operation Performed: left foot wound debridment with application of graft Specimen/Specimens Removed: none Estimated Blood Loss: EBL {In ML}: 5 Blood Products Given: N/A Drains Used: No Drains Post-Op Condition: Good Date of Surgery/Procedure: 02/11/18 Time of Surgery/Procedure: 09:16
[2018-02-11] MEDS ORDERED: Labetalol 5mg/ml (4ml) IVP STA (09:18)
[2018-02-11] MEDS ORDERED: HYDROmorphone 0.5 mg/0.5 ml ISec IVP PRN (09:18)
[2018-02-11] MEDS ORDERED: Lactated Ringer's 1,000 ML IV SCH (09:30)
[2018-02-11 10:54] VITALS: BP 166/106; PULSE 74; RESP 13; TEMP 97.3; O2SAT 100
--- NOTE | 2018-02-13 02:38 | OP ---
PROCEDURE DATE: 02/11/2018 PREOPERATIVE DIAGNOSIS: Left foot chronic non-healing wound. POSTOPERATIVE DIAGNOSIS: Left foot chronic non-healing wound. PROCEDURE PERFORMED: Left foot wound debridement with application of graft. SURGEON: Lilia Alvarenga DPM MARKETING CONTENT SPECIALIST: Judy Santo DPM PGY-3 ANESTHESIOLOGIST: Dr. Caballero. ANESTHESIA: MAC IV sedation with local injections. INDICATIONS: The patient is a 57-year-old male with the above mentioned diagnosis. The patient is being treated by Dr. Alvarenga in clinic on outpatient basis where he has exhausted multiple forms of conservative treatment. The patient seeks surgical intervention at this time. All risks, benefits, and possible complications of proposed procedure have been explained to the patient at length. The patient verbalized understanding and wishes to proceed. All questions were answered. No guarantees were given nor implied. Consent was signed. N.p.o. status was confirmed prior to bringing the patient to the operating room. OPERATIVE PROCEDURE: The patient was brought into the operating room and placed on the operating room table in a supine position. No pneumatic ankle tourniquet or hemostasis was used. Once IV sedation was achieved, a local injection consisting of 12 mL of 1:1 mixture of 2% lidocaine plain and 0.25% Marcaine plain was given in a local block fashion to the patient's left foot. Once local anesthesia was achieved, the left foot was then prepped and draped in a usual sterile manner and the procedure began. Attention was directed to the medial side of the left foot where the wound was noted to be approximately 10 cm x 7 cm. The wound was sharply debrided with a chlorohex and a #15 blade. Once the wound was debrided, the Integra Bilayer Mesh graft was then applied to the thigh, and sutured with 3-0 Monocryl. The surgical site was then dressed with a VIRGILIO wound VAC, 4 x 4s, Kerlix, and a light BOUBACAR. POSTOPERATIVE CONDITION: The patient tolerated the anesthesia and the procedure well with no apparent complications or complaints. The patient was escorted from operating room to recovery room, vital signs stable and neurovascular structures intact. The patient will follow up with Dr. Alvarenga on outpatient basis. Judy Santo DPM Lilia Alvarenga DPM [facility] # [id number]
--- NOTE | 2018-02-15 13:06 | PQF ---
PROVIDER RESPONSE TEXT: This is an ulcerated soft tissue mass of the left foot. 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 REVIEWER QUERY TEXT: Skin Ulcer Type and Severity Dear Dr Alvarenga Can you please be more specific in this patient diagnosis? Is this an ulcer? Thank you Deysi Gore The patient's Clinical Indicators include: Please be more specific on the primary diagnosis Query created by: Deysi Gore on 02/14/2018 11:20 AM Electronically signed by: Lilia Alvarenga DPM 02/15/2018 1:03 PM
== END 2018-02-11 11:52 | disposition home or self-care (01) ==
LOC: C.SDS 06:34
PROVIDERS: ATTEND Podiatrist Foot & Ankle Surgery
DX: D23.72 Other benign neoplasm of skin of left lower limb, including hip (principal)
CPT/HCPCS: 15275; 82948; 97597; J0690; J1170; J2250; J2704; J3010; Q4104

== ENCOUNTER 2018-02-18 11:32 | Emergency (ER) | payer MEDICAID ==
[2018-02-18 11:43] VITALS: BMI 24.4
[2018-02-18 11:45] VITALS: RESP 18
--- NOTE | 2018-02-18 12:07 | C.PDOC ---
History Of Present Illness 57 year old male presents to the ED sent by Dr. Alvarenga for an evaluation of skin graft on left foot. As per patient, skin graft was placed one week ago because he had a benign cyst and he was told to come back today for a wound check. Patient complains of slight pain and foul smell. Denies any fever or chills. Time Seen by Provider: 02/18/18 11:46 Chief Complaint (Nursing): Abnormal Skin Integrity History Per: Patient History/Exam Limitations: no limitations Onset/Duration Of Symptoms: Days Current Symptoms Are (Timing): Still Present Location Of Injury: Left: Foot (skin graft) Quality Of Symptoms: Painful Past Medical History Reviewed: Historical Data, Nursing Documentation, Vital Signs Vital Signs: Last Vital Signs Temp 98.2 F 02/18/18 11:43 Pulse 108 H 02/18/18 11:43 Resp 18 02/18/18 11:43 BP 154/100 H 02/18/18 11:43 Pulse Ox 100 02/18/18 11:43 - Medical History PMH: HTN Denies: Chronic Kidney Disease Other Surgeries: hx of surgeries Family History: States: No Known Family Hx - Social History Hx Alcohol Use: Yes Hx Substance Use: No - Immunization History Hx Tetanus Toxoid Vaccination: No Hx Influenza Vaccination: No Hx Pneumococcal Vaccination: No Review Of Systems Except As Marked, All Systems Reviewed And Found Negative. Constitutional: Negative for: Fever, Chills Skin: Positive for: Other (skin graft on left foot ) Physical Exam - Physical Exam Appears: Non-toxic, No Acute Distress Skin: Warm, Dry, Other (skin graft in place with dressing and drain, no edema ) Head: Normacephalic Eye(s): bilateral: Normal Inspection Nose: Normal Oral Mucosa: Moist Neck: Supple Chest: Symmetrical Cardiovascular: Rhythm Regular Respiratory: Normal Breath Sounds, No Rales, No Rhonchi, No Wheezing Gastrointestinal/Abdominal: Soft, No Tenderness Neurological/Psych: Oriented x3, Normal Speech Gait: With Assistance (cane) ED Course And Treatment - Laboratory Results Result Diagrams: 02/18/18 13:28 02/18/18 13:28 O2 Sat by Pulse Oximetry: 100 (RA) Pulse Ox Interpretation: Normal - Other Rad Left Foot XR X-Ray: Viewed By Me, Read By Radiologist Interpretation: Accession No. : [id number]. Patient Name / ID : HILDA SANTORO / [id number]. Exam Date : 02/18/2018 13:38:41 ( Approved ). Study Comment : Sex / Age : M / 57Y. Creator : Christian Hernandez MD. Dictator : Christian Hernandez MD. Candy Dipper : Lighting Equipment Operator : Christian Hernandez MD. Approver2 : Report Date : 02/18/2018 14:00:03. My Comment : . Date of service: 02/18/2018. PROCEDURE: Left Foot Radiographs. HISTORY: INFECTED GRAFT. COMPARISON: 12/18/2017. FINDINGS: BONES: Normal. No fracture. JOINTS: Normal. SOFT TISSUES: Normal. OTHER FINDINGS: None. IMPRESSION: Normal left foot radiographs. No plain radiographic evidence of osteomyelitis. Reevaluation Time: 14:13 Reassessment Condition: Unchanged (cleared for dc podiatry resident) Medical Decision Making Medical Decision Making: Plan - Bloodwork - XR left foot Disposition Counseled Patient/Family Regarding: Studies Performed, Diagnosis, Need For Followup - Disposition Disposition: HOME/ ROUTINE Disposition Time: 14:17 Condition: GOOD Additional Instructions: WOUND CARE ADVISED BY DR ALVARENGA. FOLLOW UP SCHEDULED. Forms: [employer] (Bulgarian), General Discharge Instructions - Clinical Impression Clinical Impression: Wound of foot - Scribe Statement The provider has reviewed the documentation as recorded by the Scribe May Parker All medical record entries made by the Scribe were at my direction and personally dictated by me. I have reviewed the chart and agree that the record accurately reflects my personal performance of the history, physical exam, medical decision making, and the department course for this patient. I have also personally directed, reviewed, and agree with the discharge instructions and disposition.
[2018-02-18 13:31] LABS: BASO # 0.1 K/uL (0.0-0.2); BASO % 1.3 % (0.0-2.0); EOS # 0.1 K/uL (0.0-0.7); HEMOGLOBIN 13.8 g/dL (12.0-18.0); LYMPH % 19.2 % (20.0-40.0); MEAN CORPUSCULAR HEMOGLOBIN 34.8 pg (27.0-31.0); MEAN CORPUSCULAR HGB CONC 34.1 g/dL (33.0-37.0); MEAN PLATELET VOLUME 8.2 fL (7.2-11.7); MONO # 0.7 K/uL (0.0-0.8); MONO % 12.3 % (0.0-10.0); NEUT # 3.6 K/uL (1.8-7.0); NEUT % 66.2 % (50.0-75.0); NRBC % 0.1 % (0.0-2.0); RBC 3.96 Mil/uL (4.40-5.90); RED CELL DISTRIBUTION WIDTH 13.4 % (11.5-14.5); WHITE BLOOD COUNT 5.4 K/uL (4.8-10.8)
[2018-02-18 13:44] LABS: BLOOD UREA NITROGEN 13 mg/dL (9-20); CALCIUM 8.8 mg/dl (8.6-10.4); GFR NON-AFRICAN AMERICAN > 60
--- NOTE | 2018-02-18 14:04 | RAD ---
Date of service: 02/18/2018 PROCEDURE: Left Foot Radiographs. HISTORY: INFECTED GRAFT COMPARISON: 12/18/2017 FINDINGS: BONES: Normal. No fracture. JOINTS: Normal. SOFT TISSUES: Normal. OTHER FINDINGS: None. IMPRESSION: Normal left foot radiographs. No plain radiographic evidence of osteomyelitis.
[2018-02-18 14:28] VITALS: BP 156/100; PULSE 100; TEMP 98.7
[2018-02-18 14:58] VITALS: O2SAT 100
--- NOTE | 2018-02-18 15:47 | CP.PCM.CON ---
History of Present Illness - History of Present Illness History of Present Illness: Podiatry Consult for Dr. Alvarenga 57 y/o male with PMHx of HTN seen in ED for left foot malodorous wound Patient states he had a graft placed with Dr Alvarenga last Sunday and had a wound vac on it, howveer has noticed a lot of odor recently and decided to come in through the ED. He admits to significant pain. Denies F/C/N/V/CP/SOB. Denies tingling, numbness or burning in the left lower extremity. PSH: denies All: NKDA SocHx: social EtOH; denies cigarette or illicit drug use Past Patient History - Past Medical History & Family History Past Medical History?: Yes - Past Social History Smoking Status: Former Smoker - CARDIAC Hx Hypertension: Yes - PULMONARY Hx Respiratory Disorders: No - NEUROLOGICAL Hx Neurological Disorder: No - HEENT Hx HEENT Problems: No - RENAL Hx Chronic Kidney Disease: No - ENDOCRINE/METABOLIC Hx Endocrine Disorders: No - HEMATOLOGICAL/ONCOLOGICAL Hx Blood Disorders: No - INTEGUMENTARY Hx Dermatological Problems: Yes Other/Comment: HX:LEFT FOOT SOFT TISSUE MASS. HX: SURGICAL WOUND LEFT FOOT - MUSCULOSKELETAL/RHEUMATOLOGICAL Hx Musculoskeletal Disorders: No Hx Falls: No - GASTROINTESTINAL Hx Gastrointestinal Disorders: No - GENITOURINARY/GYNECOLOGICAL Hx Genitourinary Disorders: No - PSYCHIATRIC Hx Substance Use: No - SURGICAL HISTORY Hx Surgeries: Yes Other/Comment: HX: LEFT FOOT SOFT TISSUE MASS REMOVAL(01/18/18) - ANESTHESIA Hx Anesthesia: Yes Hx Anesthesia Reactions: No Hx Malignant Hyperthermia: No Meds Allergies/Adverse Reactions: Allergies Allergy/AdvReac Type Severity Reaction Status Date / Time No Known Allergies Allergy Verified 02/18/18 11:39 Physical Exam - Constitutional Appears: Well, Non-toxic, No Acute Distress - Head Exam Head Exam: ATRAUMATIC, NORMOCEPHALIC - Eye Exam Eye Exam: EOMI, Normal appearance Pupil Exam: NORMAL ACCOMODATION - ENT Exam ENT Exam: Mucous Membranes Moist - Neck Exam Neck exam: Positive for: Normal Inspection - Respiratory Exam Respiratory Exam: Clear to Auscultation Bilateral, NORMAL BREATHING PATTERN - Cardiovascular Exam Cardiovascular Exam: REGULAR RHYTHM - Extremities Exam Additional comments: LLE focused exam: Vasc: DP/PT pulses palpable 2/4. Temperature gradient warm to cool. CFT < 3 sec to all digits. No pedal edema noted Derm: graft intact to the wound on medial aspect of the rearfoot, no active drainage, no erythema, moderate malodor, no tracking or tunneling, maceration of the wound edges noted, sutures intact surrounding the graft, no clinical signs of infection Neuro: Protective sensation grossly intact Ortho: moderate-severe tenderness to palpation of wound Results - Vital Signs Recent Vital Signs: Last Vital Signs Temp 98.7 F 02/18/18 14:25 Pulse 100 H 02/18/18 14:25 Resp 18 02/18/18 14:25 BP 156/100 H 02/18/18 14:25 Pulse Ox 100 02/18/18 14:58 - Labs Result Diagrams: 02/18/18 13:28 02/18/18 13:28 Labs: Laboratory Results - last 24 hr 02/18/18 02/18/18 13:28 13:28 WBC 5.4 RBC 3.96 L Hgb 13.8 Hct 40.3 MCV 102.0 H MCH 34.8 H MCHC 34.1 RDW 13.4 Plt Count 199 MPV 8.2 Neut % (Auto) 66.2 Lymph % (Auto) 19.2 L Izard % (Auto) 12.3 H Eos % (Auto) 1.0 Baso % (Auto) 1.3 Neut # (Auto) 3.6 Lymph # (Auto) 1.0 Izard # (Auto) 0.7 Eos # (Auto) 0.1 Baso # (Auto) 0.1 Sodium 138 Potassium 4.3 Chloride 101 Carbon Dioxide 28 Anion Gap 13 BUN 13 Creatinine 1.1 Est GFR ( Amer) > 60 Est GFR (Non-Af Amer) > 60 Random Glucose 110 Calcium 8.8 Assessment & Plan - Assessment and Plan (Free Text) Assessment: 57 yo male seen in the ED for a wound on the medial aspect of the left rearfoot Plan: Patient seen and evaluated Chart, labs and vitals reviewed; afebrile WBC WNL X-rays- no osseous changes noted Bilayer graft left intact; well padded wet to dry dressing placed on the wound with moderate compression Patient advised to continue NWB patient to continue to follow up in [facility] clinic Patient showed verbal understanding and all questions were answered thank you for the consult
== END 2018-02-18 14:28 | disposition home or self-care (01) ==
LOC: C.ER 11:32
DX: S91.302A Unspecified open wound, left foot, initial encounter (principal); X58.XXXA Exposure to other specified factors, initial encounter; I10 Essential (primary) hypertension; Z87.891 Personal history of nicotine dependence

== ENCOUNTER 2018-02-23 19:43 | Emergency (ER) | payer MEDICAID ==
[2018-02-23 19:44] VITALS: BMI 24.4
[2018-02-23 19:51] VITALS: BP 137/85; PULSE 105; RESP 20; TEMP 98.2; O2SAT 97
--- NOTE | 2018-02-23 20:16 | C.PDOC ---
History Of Present Illness 57 y/o male with htn, s/p skin graft to left foot on 02/11, presents to ed with persistent pain and for wound check. denies fever. pt seen in ed for same on 02/18, has appt with Dr Alvarenga on sunday. Time Seen by Provider: 02/23/18 20:01 Chief Complaint (Nursing): Lower Extremity Problem/Injury History Per: Patient History/Exam Limitations: no limitations Onset/Duration Of Symptoms: Days Current Symptoms Are (Timing): Worse Severity: Moderate Past Medical History Reviewed: Historical Data, Nursing Documentation, Vital Signs Vital Signs: Last Vital Signs Temp 98.2 F 02/23/18 19:48 Pulse 105 H 02/23/18 19:48 Resp 20 02/23/18 19:48 BP 137/85 02/23/18 19:48 Pulse Ox 97 02/23/18 19:48 - Medical History PMH: HTN Denies: Chronic Kidney Disease Other Surgeries: skin graft left foot 02/11/18 Family History: States: Unknown Family Hx - Social History Hx Alcohol Use: Yes Hx Substance Use: No - Immunization History Hx Tetanus Toxoid Vaccination: No Hx Influenza Vaccination: No Hx Pneumococcal Vaccination: No Review Of Systems Constitutional: Negative for: Fever Musculoskeletal: Positive for: Foot Pain (left) Skin: Positive for: Other (skin graft left foot) Neurological: Negative for: Weakness, Numbness Physical Exam - Physical Exam Appears: Non-toxic, No Acute Distress Skin: Warm, Dry, Other (left foot with dry peeling skin; graft to medial left mid foot; bandage not fully removed as edges of graft appear loose. brownish discharge on bandages, malodorous. ) Pulses: Left Dorsalis Pedis: Normal ED Course And Treatment O2 Sat by Pulse Oximetry: 97 Medical Decision Making Medical Decision Making: pt for wound check and pain; podiatry resident notified and will come see pt in ed. pt notified resident should be here in 30 min approx. 2105 pt seen by podiatry, dressing changed. may be discharged. f/u Dr Alvarenga on Sun Disposition Discussed With : Lilia Alvarenga Doctor Will See Patient In The: Office Counseled Patient/Family Regarding: Diagnosis, Need For Followup, Rx Given - Disposition Referrals: Lilia Alvarenga DPM [Staff Provider] - Disposition: HOME/ ROUTINE Disposition Time: 21:08 Condition: GOOD Additional Instructions: Please keep dressing clean and dry. Elevate foot whenever possible. Tylenol for pain. Follow up with Dr Alvarenga on Sunday as scheduled. Prescriptions: Acetaminophen [Tylenol 325mg tab] 650 mg PO Q4 #50 tab Forms: [facility] (Estonian), General Discharge Instructions - Clinical Impression Clinical Impression: Visit for wound check
--- NOTE | 2018-02-25 12:45 | CP.PCM.CON ---
History of Present Illness - History of Present Illness History of Present Illness: Podiatry Consult for Dr. Alvarenga 57 y/o male with PMHx of HTN seen in ED for left foot wound with graft. Patient states he had a graft placed with Dr Alvarenga 02/11 and has been keeping his dressing clean, dry, and intact as best as he can, however has noticed a lot of odor recently and decided to come in through the ED to have the dressing and graft checked. He admits to mild pain. Denies F/C/N/V/CP/SOB. Denies tingling, numbness or burning in the left lower extremity. PSH: denies All: NKDA SocHx: social EtOH; denies cigarette or illicit drug use Past Patient History - Past Medical History & Family History Past Medical History?: Yes - Past Social History Smoking Status: Former Smoker - CARDIAC Hx Hypertension: Yes - PULMONARY Hx Respiratory Disorders: No - NEUROLOGICAL Hx Neurological Disorder: No - HEENT Hx HEENT Problems: No - RENAL Hx Chronic Kidney Disease: No - ENDOCRINE/METABOLIC Hx Endocrine Disorders: No - HEMATOLOGICAL/ONCOLOGICAL Hx Blood Disorders: No - INTEGUMENTARY Hx Dermatological Problems: Yes Other/Comment: HX:LEFT FOOT SOFT TISSUE MASS. HX: SURGICAL WOUND LEFT FOOT - MUSCULOSKELETAL/RHEUMATOLOGICAL Hx Musculoskeletal Disorders: No Hx Falls: No - GASTROINTESTINAL Hx Gastrointestinal Disorders: No - GENITOURINARY/GYNECOLOGICAL Hx Genitourinary Disorders: No - PSYCHIATRIC Hx Substance Use: No - SURGICAL HISTORY Hx Surgeries: Yes Other/Comment: HX: LEFT FOOT SOFT TISSUE MASS REMOVAL(01/18/18) - ANESTHESIA Hx Anesthesia: Yes Hx Anesthesia Reactions: No Hx Malignant Hyperthermia: No Meds Home Medications: Home Medication List Medication Instructions Recorded Confirmed Type Acetaminophen [Tylenol 325mg tab] 650 mg PO Q4 #50 tab 02/23/18 Rx Allergies/Adverse Reactions: Allergies Allergy/AdvReac Type Severity Reaction Status Date / Time No Known Allergies Allergy Verified 02/18/18 11:39 Physical Exam - Constitutional Appears: Well, Non-toxic, No Acute Distress - Head Exam Head Exam: ATRAUMATIC, NORMOCEPHALIC - Extremities Exam Additional comments: LLE focused Vasc: DP/PT pulses palpable 2/4. Temperature gradient warm to cool. CFT < 3 sec to all digits. No pedal edema noted Derm: graft intact to the wound on medial aspect of the rearfoot, no active drainage, no erythema, moderate malodor, no tracking or tunneling, maceration of the wound edges noted, sutures intact surrounding the graft, no clinical signs of infection Neuro: Protective sensation grossly intact Ortho: mild tenderness to palpation of wound - Neurological Exam Neurological exam: Alert, Oriented x3 - Psychiatric Exam Psychiatric exam: Normal Affect, Normal Mood Results - Vital Signs Recent Vital Signs: Last Vital Signs Temp 98.2 F 02/23/18 19:48 Pulse 105 H 02/23/18 19:48 Resp 20 02/23/18 21:19 BP 137/85 02/23/18 19:48 Pulse Ox 97 02/23/18 21:16 Assessment & Plan - Assessment and Plan (Free Text) Assessment: 57M seen in the ED for a wound check on the medial aspect of the left rearfoot Plan: Patient seen and evaluated Discussed in detail with Dr. Alvarenga Bilayer graft left intact; well padded wet to dry dressing placed on the wound with moderate compression Patient advised to continue NWB patient to continue to follow up in [facility], appt 03/04 Patient showed verbal understanding and all questions were answered Thank you for the consult - Date & Time Date: 02/23/18 Time: 20:25
== END 2018-02-23 21:19 | disposition home or self-care (01) ==
LOC: C.ER 19:43
DX: Z51.89 Encounter for other specified aftercare (principal)

== ENCOUNTER 2018-03-04 12:09 | Emergency (ER) | payer MEDICAID ==
[2018-03-04 12:09] VITALS: BMI 24.4
[2018-03-04 12:19] VITALS: BP 150/98; PULSE 78; RESP 18; TEMP 98.1; O2SAT 100
--- NOTE | 2018-03-04 12:24 | C.PDOC ---
History Of Present Illness 57 y/o male, with PMHx of hypertension, comes in complaining of pain to the left foot. Patient was seen here in ED on 02/18/18 and 02/23/18 for left foot wound with graft. Patient states he had a graft placed with Dr. Alvarenga on 02/11/18. Patient has no other physical complaints. SEEN 02/18 AND FOR SAME. PMHx of HTN seen in ED for left foot wound with graft. Patient states he had a graft placed with Dr Alvarenga 02/11 Time Seen by Provider: 03/04/18 12:22 Chief Complaint (Nursing): Medical Clearance History Per: Patient History/Exam Limitations: no limitations Onset/Duration Of Symptoms: Days Current Symptoms Are (Timing): Still Present Past Medical History Reviewed: Historical Data, Nursing Documentation, Vital Signs Vital Signs: Last Vital Signs Temp 98.1 F 03/04/18 12:14 Pulse 78 03/04/18 12:14 Resp 18 03/04/18 12:14 BP 150/98 H 03/04/18 12:14 Pulse Ox 100 03/04/18 12:14 - Medical History PMH: HTN Denies: Chronic Kidney Disease Family History: States: No Known Family Hx - Social History Hx Alcohol Use: No Hx Substance Use: No - Immunization History Hx Tetanus Toxoid Vaccination: Yes Hx Influenza Vaccination: Yes Hx Pneumococcal Vaccination: Yes Review Of Systems Except As Marked, All Systems Reviewed And Found Negative. Constitutional: Negative for: Fever Cardiovascular: Negative for: Chest Pain Respiratory: Negative for: Shortness of Breath Gastrointestinal: Negative for: Abdominal Pain Musculoskeletal: Positive for: Foot Pain (L) Neurological: Negative for: Weakness, Numbness Physical Exam - Physical Exam Appears: Non-toxic, No Acute Distress Skin: Warm, Dry Head: Atraumatic, Normacephalic Eye(s): bilateral: Normal Inspection Oral Mucosa: Moist Neck: Supple Chest: Symmetrical Cardiovascular: Rhythm Regular, No Murmur Respiratory: Normal Breath Sounds, No Rales, No Rhonchi, No Wheezing Gastrointestinal/Abdominal: Soft, No Tenderness Extremity: Bilateral: Normal Color And Temperature Neurological/Psych: Oriented x3, Normal Speech ED Course And Treatment O2 Sat by Pulse Oximetry: 100 (RA) Pulse Ox Interpretation: Normal Progress - Re-Evaluation Re-evaluation Note: 03/04/18 12:24 D/W PODIATRY RESIDENT WILL EVAL IN ER 03/04/18 13:38 SP DRESSING CHANGE PODIATRY, PT TO FU CLINIC IN FUTURE - Data Reviewed Data Reviewed: Old records Disposition Counseled Patient/Family Regarding: Diagnosis, Need For Followup - Disposition Referrals: [facility] [Outside] Disposition: HOME/ ROUTINE Disposition Time: 13:38 Condition: IMPROVED Instructions: Wound Care (DC) Forms: [employer] (Vietnamese) - Clinical Impression Clinical Impression: Visit for wound check - Scribe Statement The provider has reviewed the documentation as recorded by the Mario Bucio Provider Attestation: All medical record entries made by the Mario were at my direction and personally dictated by me. I have reviewed the chart and agree that the record accurately reflects my personal performance of the history, physical exam, medical decision making, and the department course for this patient. I have also personally directed, reviewed, and agree with the discharge instructions and disposition.
== END 2018-03-04 13:59 | disposition home or self-care (01) ==
LOC: C.ER 12:09
DX: Z48.01 Encounter for change or removal of surgical wound dressing (principal)

== ENCOUNTER 2018-03-15 14:05 | Emergency (ER) | payer MEDICAID | END 2018-03-15 16:13 | disposition home or self-care (01) | LOC: C.ER 14:05 ==

== ENCOUNTER 2018-05-19 17:36 | Emergency (ER) | payer MEDICAID ==
[2018-05-19 17:37] VITALS: BMI 24.7
--- NOTE | 2018-05-19 18:48 | C.PDOC ---
History Of Present Illness 57 y/o male with a previous hx of recent MRI 3 months ago, animal skin graft to left anterior foot, s/p cyst removal with Dr. Fields, presents to the ED today with complaining of bilateral wrist, hand, and knee swelling that began 2 months ago. Associated with generalized body aches and fever. He denies having prior episodes of similar symptoms, states the symptoms first occurred after he was given IV contrast for the MRI. Otherwise patient denies any chest pain, SOB, nausea, vomiting, abdominal pain, diarrhea, or rashes. Denies family hx of autoimmune disease. Denies taking any new medication or antibiotics. Patient was seen on 05/[address] Fields for follow-up of the left foot, noted to be much improving following procedure. Patient reports the extremity is improving overall and states his left foot is currently unchanged since that visit. Denies recent travel. Time Seen by Provider: 05/19/18 18:25 Chief Complaint (Nursing): Medical Clearance History Per: Patient History/Exam Limitations: no limitations Onset/Duration Of Symptoms: Days (x 2 months) Current Symptoms Are (Timing): Still Present Past Medical History Reviewed: Historical Data, Nursing Documentation, Vital Signs Vital Signs: Last Vital Signs Temp 101.7 F H 05/19/18 17:42 Pulse 112 H 05/19/18 17:42 Resp 18 05/19/18 17:42 BP 169/103 H 05/19/18 17:42 Pulse Ox 97 05/19/18 17:42 - Medical History PMH: HTN Denies: Chronic Kidney Disease Other Surgeries: s/p animal skin graft to left foot, following cyst removal Family History: States: Unknown Family Hx - Social History Hx Alcohol Use: No Hx Substance Use: No - Immunization History Hx Tetanus Toxoid Vaccination: Yes Hx Influenza Vaccination: No Hx Pneumococcal Vaccination: No Review Of Systems Constitutional: Positive for: Fever, Other (Diffuse body aches and joint pain). Negative for: Chills, Sweats Eyes: Negative for: Pain, Vision Change, Conjunctivae Inflammation ENT: Negative for: Ear Pain Cardiovascular: Negative for: Chest Pain Respiratory: Negative for: Shortness of Breath Gastrointestinal: Negative for: Nausea, Vomiting, Abdominal Pain, Diarrhea Musculoskeletal: Positive for: Other (Swelling to B/L hands, wrists, knees) Skin: Negative for: Rash Neurological: Negative for: Weakness, Numbness, Headache, Dizziness Physical Exam - Physical Exam Appears: Well, Non-toxic, No Acute Distress Skin: Warm, Dry, No Rash Head: Atraumatic, Normacephalic Eye(s): bilateral: Normal Inspection, PERRL, EOMI Nose: Normal, No Epistaxis, No Deformity, No Tenderness, No Septal Hematoma Oral Mucosa: Moist, No Drooling Tongue: Normal Appearing, No Swelling, No Lesions Lips: Normal Appearing, No Swelling, No Contusion Teeth: Normal Dentition Gingiva: Normal Appearing Throat: Normal, No Erythema, No Exudate, No Drooling, No Mass Neck: Trachea Midline, Supple, Other (No meningeal signs- negative kernig's and brudzinskis) Lymphatic: Normal Exam, No Adenopathy Chest: Symmetrical Cardiovascular: Rhythm Regular, No Friction Rub, No Murmur Respiratory: No Rales, No Rhonchi, No Stridor, No Wheezing Gastrointestinal/Abdominal: Normal Exam, Soft, No Tenderness, No Mass, No D istention Back: Normal Inspection, No CVA Tenderness, No Vertebral Tenderness Extremity: No Tenderness, No Deformity, Swelling (Mild bilateral knee and bilateral hand edema, non-pitting), Other (Neurovascularly intact) Extremity: Bilateral: Atraumatic, Normal Color And Temperature Pulses: Left Dorsalis Pedis: Normal, Right Dorsalis Pedis: Normal Neurological/Psych: Oriented x3, Normal Speech, Normal Cognition Gait: Steady ED Course And Treatment - Laboratory Results Result Diagrams: 05/19/18 18:54 05/19/18 18:54 O2 Sat by Pulse Oximetry: 97 (on RA) Pulse Ox Interpretation: Normal Medical Decision Making Medical Decision Makin57 y/o male with a previous hx of recent MRI 3 months ago, animal skin graft to left anterior foot, s/p cyst removal with Dr. Fields, comes in today with c/o B/L wrist, hand, and knee swelling that began 2 months ago. This is the first time occurrence of symptoms, states they developed after pt was given IV contrast for the MRI. Associated with generalized body aches and fever. No other complaints. Initial Plan: - Basic blood work - Blood cultures - BNP - VBG - EKG - Flu swab - Rapid strep test - 650 mg PO Tylenol - Reassess 2034 labs largely unremarkable, mildly elevated AST And ALKP without any abd pain. Repeat abd exam unremarkable, non-ttp, no guarding or rebound. Urine, CXR largely unremarkable Likely viral URI. No flu like symptoms, no indication for flu, remains without meningeal signs Able to do ADLS w/ mild swelling. Likely viral syndrome BNP mildly elevated, no rub or JVD noted. EKG unremarkable: 89, NSR, No stemi. Pt denies CP Given long standing symptoms unlikely acute issue requiring admission will have pt followup outpt Disposition - Disposition Referrals: Raheem Perez MD [Medical Doctor] - [facility] [Outside] [facility] [Outside] [facility] [Outside] Trell Carrillo MD [Staff Provider] - Xavier Hammer MD [Staff Provider] - Godfrey Rincon MD [Staff Provider] - Disposition: HOME/ ROUTINE Disposition Time: 21:28 Condition: GOOD Additional Instructions: RETURN IF WORSENS AGAIN, RETURN IF SHORT OF BREATH OR CHEST PAIN. RETURN FOR ANY OTHER NEW COMPLAINTS. SEE YOUR DOCTOR BERTRAND. ALSO SEE A GI DOCTOR OR ONE WE HAVE RECCOMENDED FOR YOU ELEVATED LFTS. ALSO SEE A JOY OPERATOR HELPER FOR THE SWELLING. ALSO SEE A TYPING TEACHER. MAUDE STEVENS, thank you for letting us take care of you today. Your provider was Gilberto Pineda and you were treated for SWELLING HANDS AND KNEES. The emergency medical care you received today was directed at your acute symptoms. If you were prescribed any medication, please fill it and take as directed. It may take several days for your symptoms to resolve. Return to the Emergency Department if your symptoms worsen, do not improve, or if you have any other problems. Please contact your doctor or call one of the physicians/clinics you have been referred to that are listed on the Patient Visit Information form that is included in your discharge packet. Bring any paperwork you were given at discharge with you along with any medications you are taking to your follow up visit. Our treatment cannot replace ongoing medical care by a primary care pro vider outside of the emergency department. Thank you for allowing the [facility] team to be part of your care today. If you had an X-Ray or CT scan: A Radiologist will review the ED reading if any change in treatment is needed we will contact you. If you had a blood, urine, or wound culture: It will take several days for the results, if any change in treatment is needed we will contact you. If you had an STI test: It will take 48 hours for the results. Please call after 1 week if you have not heard back. Instructions: Viral Syndrome (DC) Forms: [employer] (Sierra Leonean) - Clinical Impression Clinical Impression: Arm swelling, Bilateral knee swelling, Viral syndrome - Scribe Statement The provider has reviewed the documentation as recorded by the Mario Maharaj Provider Attestation: All medical record entries made by the Mario were at my direction and personally dictated by me. I have reviewed the chart and agree that the record accurately reflects my personal performance of the history, physical exam, medical decision making, and the department course for this patient. I have also personally directed, reviewed, and agree with the discharge instructions and disposition.
[2018-05-19 18:56] LABS: BASO # 0.1 K/uL (0.0-0.2); BASO % 1.2 % (0.0-2.0); EOS % 0.6 % (0.0-4.0); HEMOGLOBIN 14.1 g/dL (12.0-18.0); LYMPH # 0.9 K/uL (1.0-4.3); MEAN CELL VOLUME 93.6 fL (80.0-94.0); MEAN CORPUSCULAR HEMOGLOBIN 32.1 pg (27.0-31.0); MEAN CORPUSCULAR HGB CONC 34.3 g/dL (33.0-37.0); MEAN PLATELET VOLUME 7.9 fL (7.2-11.7); MONO # 0.6 K/uL (0.0-0.8); NEUT # 4.6 K/uL (1.8-7.0); NEUT % 73.2 % (50.0-75.0); RBC 4.39 Mil/uL (4.40-5.90); RED CELL DISTRIBUTION WIDTH 14.7 % (11.5-14.5); WHITE BLOOD COUNT 6.3 K/uL (4.8-10.8)
[2018-05-19 19:09] LABS: ALBUMIN 4.2 g/dL (3.5-5.0); ALT/SGPT 48 U/L (21-72); AST/SGOT 169 U/L (17-59); BLOOD UREA NITROGEN 6 mg/dL (9-20); CALCIUM 9.1 mg/dl (8.6-10.4); GFR NON-AFRICAN AMERICAN > 60
[2018-05-19 19:17] LABS: B-TYPE NATRIURETIC PEPTIDE 556 pg/mL (0-900)
[2018-05-19 19:20] LABS: VENOUS BLOOD GAS BASE EXCESS 7.4 mmol/L (0.0-2.0); VENOUS BLOOD GAS PCO2 44 mmHg (40-60); VENOUS BLOOD GAS PO2 36 mm/Hg (30-55); VENOUS BLOOD PH 7.47 (7.32-7.43)
[2018-05-19 19:38] VITALS: RESP 16
[2018-05-19 20:03] LABS: RENAL EPITHELIAL 1 /hpf (0-3); SQUAMOUS EPITHIAL < 1 /hpf (0-5); URINE BILIRUBIN NEGATIVE (NEGATIVE); URINE BLOOD NEGATIVE (NEGATIVE); URINE CLARITY Hazy (Clear); URINE COLOR Amber (YELLOW); URINE GLUCOSE (UA) NORMAL (Normal); URINE LEUKOCYTE ESTERASE NEG Leu/uL (Negative); URINE PROTEIN 2+ mg/dL (NEGATIVE); URINE UROBILINOGEN NORMAL mg/dL (0.2-1.0)
[2018-05-19 21:56] VITALS: BP 151/90; PULSE 92; TEMP 99.4
--- NOTE | 2018-05-20 09:12 | RAD ---
Date of service: 05/19/2018 HISTORY: fever COMPARISON: Comparison chest 01/18/2018. TECHNIQUE: Chest PA and lateral views FINDINGS: LUNGS: Mild bibasilar atelectasis PLEURA: No significant pleural effusion identified. No pneumothorax apparent. CARDIOVASCULAR: Mild aortic atherosclerotic calcification present. Heart appears upper limits of normal/borderline enlarged. No pulmonary vascular congestion. OSSEOUS STRUCTURES: Minor multilevel degenerative spondylosis of the thoracic spine. VISUALIZED UPPER ABDOMEN: Normal. OTHER FINDINGS: None. IMPRESSION: Mild bibasilar atelectasis.
--- NOTE | 2018-05-20 09:22 | CARD ---
APPROVED REPORT Date of service: 05/19/2018 EKG Measurement Heart [id number] <Conclusion> Normal sinus rhythm Right atrial enlargement Minimal voltage criteria for LVH, may be normal variant T wave abnormality, consider inferolateral ischemia Abnormal ECG
[2018-05-21 20:24] VITALS: O2SAT 97
== END 2018-05-19 21:56 | disposition home or self-care (01) ==
LOC: C.ER 17:36
DX: B34.9 Viral infection, unspecified (principal); M79.89 Other specified soft tissue disorders; I10 Essential (primary) hypertension; Z87.891 Personal history of nicotine dependence

== ENCOUNTER 2018-07-14 10:35 | Emergency (ER) | payer MEDICAID ==
[2018-07-14 10:35] VITALS: BMI 24.7
--- NOTE | 2018-07-14 11:40 | C.PDOC ---
History Of Present Illness Patient is a 58 year old male, with a PMHx of HTN, who presents to the ED c/o rash on his face, armpits, genitals, and chest that began a few days ago. Patient states that the rash is not painful, but rather it itchy and conteh. Patient states that he lives in a rooming house, but his family members do not have the rash. He is unsure of anyone else in the rooming house has the rash. He denies any discharge, fevers, chills, SOB, new ointments, lotions, or medications, difficulty swallowing, speaking, or breathing. Time Seen by Provider: 07/14/18 11:39 Chief Complaint (Nursing): Abnormal Skin Integrity History Per: Patient History/Exam Limitations: no limitations Onset/Duration Of Symptoms: Days Current Symptoms Are (Timing): Still Present Quality Of Symptoms: Itching, Other (burning). denies: Painful, Draining Recent travel outside of the [place]: No Additional History Per: Patient Past Medical History Reviewed: Historical Data, Nursing Documentation, Vital Signs Vital Signs: Last Vital Signs Temp 98.4 F 07/14/18 10:43 Pulse 110 H 07/14/18 10:43 Resp 18 07/14/18 10:43 BP 159/93 H 07/14/18 10:43 Pulse Ox 99 07/14/18 10:43 Primary Care Provider: Raheem Perez - Medical History PMH: HTN Denies: Chronic Kidney Disease Surgical History: No Surg Hx Family History: States: Unknown Family Hx - Social History Hx Alcohol Use: Yes Hx Substance Use: No - Immunization History Hx Tetanus Toxoid Vaccination: Yes Hx Influenza Vaccination: No Hx Pneumococcal Vaccination: Yes Review Of Systems Except As Marked, All Systems Reviewed And Found Negative. Constitutional: Negative for: Fever, Chills ENT: Negative for: Throat Swelling Respiratory: Negative for: Shortness of Breath Skin: Positive for: Rash (face, armpits, chest, genitals) Physical Exam - Physical Exam Appears: Well, Non-toxic, No Acute Distress Skin: Rash (chest, inguinal, and scrotum with excoriated linear rash. No in duration, fluctuance, erythema, or discharge) Head: Atraumatic, Normacephalic Eye(s): bilateral: Normal Inspection Nose: Normal Oral Mucosa: Moist Tongue: Normal Appearing, No Swelling Lips: Normal Appearing, No Swelling Throat: Normal, No Erythema, No Drooling Neck: Normal, Normal ROM Chest: Symmetrical Cardiovascular: Rhythm Regular, No Murmur Respiratory: Normal Breath Sounds, No Rales, No Rhonchi, No Wheezing Male Genital: Other (No crepitus or tenderness to genitals) Extremity: Normal ROM Neurological/Psych: Oriented x3, Normal Speech, Normal Cognition ED Course And Treatment O2 Sat by Pulse Oximetry: 99 (on RA) Pulse Ox Interpretation: Normal Medical Decision Making Medical Decision Making: Plan: Prednisone 40mg PO Impression: Contact dermatitis vs. scabies Patient given rx for permethrin for possible scabies given that he lives in a boarding home. Will also treat for possible dermatitis with PO steroids. Will follow-up with PMD and yeast fermentation attendant. Will return with any worsening symptoms, fevers, drainage, fevers or new symptoms. Disposition Counseled Patient/Family Regarding: Studies Performed, Diagnosis, Rx Given - Disposition Referrals: Raheem Perez MD [Medical Doctor] - Disposition: HOME/ ROUTINE Disposition Time: 12:04 Condition: IMPROVED Additional Instructions: Follow-up with PMD and yeast fermentation attendant. Return if symptoms worsen or persist. Prescriptions: Permethrin 5% [Permethrin 5% Cream] 1 applic TOP ONCE #1 tube predniSONE [Prednisone] 40 mg PO DAILY #5 tab Instructions: Skin Rash Forms: [employer] ([place] Citizen) - Clinical Impression Clinical Impression: Rash - PA / PROJECT COORDINATOR / Resident Statement MD/DO has reviewed & agrees with the documentation as recorded. - Scribe Statement The provider has reviewed the documentation as recorded by the Mario Mathis All medical record entries made by the Jessicaibe were at my direction and personally dictated by me. I have reviewed the chart and agree that the record accurately reflects my personal performance of the history, physical exam, medical decision making, and the department course for this patient. I have also personally directed, reviewed, and agree with the discharge instructions and disposition.
[2018-07-14 12:28] VITALS: BP 160/107; PULSE 103; RESP 22; TEMP 99.2
[2018-07-14 13:07] VITALS: O2SAT 99
== END 2018-07-14 12:26 | disposition home or self-care (01) ==
LOC: C.ER 10:35
DX: R21 Rash and other nonspecific skin eruption (principal)

== ENCOUNTER 2018-07-26 01:16 | Emergency (ER) | payer MEDICAID ==
[2018-07-26 01:16] VITALS: BMI 24.7
--- NOTE | 2018-07-26 02:01 | C.PDOC ---
History Of Present Illness 58 year old male presents to the ED complaining of groin itching and skin peeling off his hands. Patient was seen in this ED 07/14/18 for possible scabies, given permethrin cream. Patient reports he has used the permethrin cream all over his body daily for the last 4 days and now the skin is peeling off his hands. Patient also reports groin itching which has not improved with the prescribed cream. Denies fever, chills, or rash elsewhere on body. Time Seen by Provider: 07/26/18 01:40 Chief Complaint (Nursing): Abnormal Skin Integrity History Per: Patient History/Exam Limitations: no limitations Onset/Duration Of Symptoms: Days Location Of Injury: Right: Hand, Perineum, Left: Hand, Perineum Quality Of Symptoms: Itching Past Medical History Vital Signs: Last Vital Signs Temp 98.7 F 07/26/18 01:23 Pulse 82 07/26/18 01:23 Resp 14 07/26/18 01:23 BP 155/80 H 07/26/18 01:23 Pulse Ox 98 07/26/18 01:23 Primary Care Provider: Raheem Perez - Medical History PMH: HTN Denies: Chronic Kidney Disease Family History: States: Unknown Family Hx - Social History Hx Alcohol Use: Yes Hx Substance Use: No - Immunization History Hx Tetanus Toxoid Vaccination: Yes Hx Influenza Vaccination: No Hx Pneumococcal Vaccination: Yes Review Of Systems Except As Marked, All Systems Reviewed And Found Negative. Constitutional: Negative for: Fever, Chills Cardiovascular: Negative for: Chest Pain Respiratory: Negative for: Shortness of Breath Gastrointestinal: Negative for: Nausea Skin: Positive for: Rash Neurological: Negative for: Headache Physical Exam - Physical Exam Appears: Well, Non-toxic, No Acute Distress Skin: Normal Color, Warm, Dry, Other (Hands: peeling skin covering palms of bilateral hands, no erythema or drainage. Groin: erythematous rash with scaling border extending from scrotum to bilateral inner things and perineum, excoriations within area of erythema. Skin and scalp otherwise without rashes or lesions) Head: Atraumatic, Normacephalic Eye(s): bilateral: Normal Inspection Oral Mucosa: Moist Neurological/Psych: Oriented x3, Normal Speech Gait: Steady ED Course And Treatment O2 Sat by Pulse Oximetry: 98 Medical Decision Making Medical Decision Making: Benadryl for itch in ED. Groin rash consistent with tinea cruris, given antifungal cream. Patient educated on one time use of permethrin and advised to stop as he is likely developing contact dermatitis. Given steroid cream for hands, advised not to use on groin. Patient expressed understanding. Disposition Counseled Patient/Family Regarding: Diagnosis, Need For Followup, Rx Given - Disposition Disposition: HOME/ ROUTINE Disposition Time: 01:57 Condition: GOOD Additional Instructions: Stop using permethrin cream. Use the clotrimazole twice daily for two weeks (or until symptoms resolve) for your groin. Use the hydrocortisone twice daily for your hands until symptoms resolve. Do not use the hydrocortisone on your groin as this will make your symptoms worse. Prescriptions: Clotrimazole 1% Cream [Lotrimin 1%] 1 appl TP BID #1 tube Hydrocortisone 1% Cream [Cortizone 1% Cream] 1 appl TP BID #1 tube Instructions: Contact Dermatitis (DC), Jock Itch (DC) Forms: [employer] (Fijian) - Clinical Impression Clinical Impression: Tinea cruris, Contact dermatitis - PA / LINE TESTER / Resident Statement MD/DO has reviewed & agrees with the documentation as recorded.
[2018-07-26] MEDS ORDERED: DiphenhydrAMINE 12.5 mg/5 ml LIQ UD (5 ml) PO STA (02:20)
[2018-07-26 03:00] VITALS: BP 139/77; PULSE 81; RESP 18; TEMP 97.9
[2018-07-26 03:04] VITALS: O2SAT 98
== END 2018-07-26 03:00 | disposition home or self-care (01) ==
LOC: C.ER 01:16
DX: B35.6 Tinea cruris (principal); L25.9 Unspecified contact dermatitis, unspecified cause